=== PATIENT | female | born 1985 | race Caucasian/White ===

== ENCOUNTER 2019-05-20 13:48 | Observation (INO) | payer OTHER ==
[2019-05-20] MEDS ORDERED: SODIUM CHLORIDE 0.9% 1,000 ML IV ONE (16:05)
[2019-05-20] MEDS ORDERED: LORazepam 2 MG/ML INJ IV STA (16:05)
[2019-05-20 16:38] LABS: Basophils % (A) 2 %; Eosinophils % (A) 1 %; HCT 42.6 % (34.0-46.0); HGB 14.3 gm/dL (11.4-16.0); Lymphocytes # (A) 0.9 k/uL (1.0-4.8); Lymphocytes % (A) 34 %; MCH 37.5 pg (25.0-35.0); MCHC 33.6 g/dL (31.0-37.0); MCV 111.5 fL (80.0-100.0); Macrocytosis Marked; Mean Platelet Volume 6.6; Monocytes # (A) 0.1 k/uL (0-1.0); Monocytes % (A) 5 %; Neutrophils # (A) 1.4 k/uL (1.3-7.7); Neutrophils % (A) 55 %; Platelet Count 208 k/uL (150-450); RBC 3.82 m/uL (3.80-5.40); RDW 14.5 % (11.5-15.5); WBC 2.6 k/uL (3.8-10.6)
[2019-05-20 16:43] LABS: Appearance,Urine Cloudy (Clear); Bilirubin,Urine Negative (Negative); Blood,Urine Negative (Negative); Color,Urine Yellow; Glucose,Urine (UA) Negative (Negative); Ketones,Urine Negative (Negative); Leukocyte Esterase,Urine Negative (Negative); Mucus,Urine Rare /hpf; Nitrite,Urine Negative (Negative); Protein,Urine Negative (Negative); Specific Gravity,Urine 1.013 (1.001-1.035); Squamous Epithelial Cell,Urine 2 /hpf (0-4); Urobilinogen,Urine <2.0 mg/dL (<2.0); WBC,Urine 2 /hpf (0-5)
[2019-05-20 16:46] LABS: ALT 160 U/L (9-52); AST 437 U/L (14-36); African American GFR (CKD) >90 (>60 ml/min/1.73 sqM); Albumin 3.5 g/dL (3.5-5.0); Alcohol <10 mg/dL; Alkaline Phosphatase 220 U/L (38-126); Anion Gap 7 mmol/L; Blood Urea Nitrogen 14 mg/dL (7-17); Calcium 8.3 mg/dL (8.4-10.2); Carbon Dioxide 32 mmol/L (22-30); Chloride 98 mmol/L (98-107); Glucose 114 mg/dL (74-99); Non-African American GFR(CKD) >90 (>60 ml/min/1.73 sqM); Potassium 3.6 mmol/L (3.5-5.1); Sodium 137 mmol/L (137-145); Total Bilirubin 1.2 mg/dL (0.2-1.3); Total Protein 6.8 g/dL (6.3-8.2)
[2019-05-20 16:50] LABS: Amphetamine Screen,Urine Not Detected (NotDetected); Barbiturate Screen,Urine Not Detected (NotDetected); Benzodiazepines Screen,Urine Not Detected (NotDetected); Cocaine Screen,Urine Not Detected (NotDetected); Methadone Screen, Urine Not Detected (NotDetected); Opiate Screen,Urine Not Detected (NotDetected); Oxycodone Screen, Urine Not Detected (NotDetected); Phencyclidine Screen,Urine Not Detected (NotDetected); Tricyclic Antidepressant,Urine Not Detected (NotDetected); Urn Cannabinoid Scrn Detected (NotDetected)
[2019-05-20 17:02] LABS: Polychromasia Present
[2019-05-20] MEDS ORDERED: ONDANSETRON 4 MG/2 ML VIAL IVP PRN (18:25)
[2019-05-20] MEDS ORDERED: NALOXONE 0.4 MG/ML 1 ML VIAL IV PRN (18:25)
[2019-05-20] MEDS ORDERED: LORazepam 2 MG/ML INJ IV PRN (18:25)
[2019-05-20] MEDS ORDERED: THIAMINE 100 MG/ML 2 ML VIAL IM STA (18:25)
--- NOTE | 2019-05-20 18:25 | ED ---
General Adult HPI - General Chief complaint: Recheck/Abnormal Lab/Rx Stated complaint: Detox Time Seen by Provider: 05/20/19 14:10 Source: patient Mode of arrival: ambulatory Limitations: no limitations - History of Present Illness Initial comments: The patient is a 34-year-old female presents to the emergency room with reported alcohol withdrawal symptoms. Patient states that she normally drinks 4, 25 ounce beers per day of Nat[place] ice. Reports that she has been drinking straight for the past year. She has seen Dr. Flowers in office who is aware of her drinking and her willingness to cut down. He did instruct the patient to come into the emergency department for admission. The patient's last drink was last night. States that she's been very tremulous and nauseated today. Denies a history of DTs. No history of withdrawal seizures. Denies any vomiting. She denies any chest pain, shortness of breath or abdominal pain. No changes in her bowel or bladder habits. First day of her last menstrual period was one week ago. She admits to smoking cigarettes and marijuana. Denies use of any intravenous drugs. No hallucinations. There are no other alleviating, precipitating or modifying factors - Related Data Previous Rx's Medication Instructions Recorded Acamprosate Calcium [Campral] 666 mg PO TID #60 tablet. 05/25/19 Thiamine [Vitamin B-1] 100 mg PO BID-W/MEALS #100 tab 05/25/19 Allergies Allergy/AdvReac Type Severity Reaction Status Date / Time No Known Allergies Allergy Verified 05/20/19 17:14 Review of Systems ROS Statement: Those systems with pertinent positive or pertinent negative responses have been documented in the HPI. ROS Other: All systems not noted in ROS Statement are negative. Past Medical History Past Medical History: No Reported History History of Any Multi-Drug Resistant Organisms: None Reported Past Surgical History: No Surgical Hx Reported Additional Past Surgical History / Comment(s): facial Past Psychological History: No Psychological Hx Reported Smoking Status: Current every day smoker Past Alcohol Use History: Abuse, Daily Past Drug Use History: Marijuana - Past Family History Mother Family Medical History: Thyroid Disorder General Exam Limitations: no limitations General appearance: alert, in no apparent distress Head exam: Present: atraumatic, normocephalic, normal inspection Eye exam: Present: normal appearance, PERRL, EOMI. Absent: scleral icterus, conjunctival injection, periorbital swelling ENT exam: Present: normal exam, mucous membranes moist Neck exam: Present: normal inspection. Absent: tenderness, meningismus, lymphadenopathy Respiratory exam: Present: normal lung sounds bilaterally. Absent: respiratory distress, wheezes, rales, rhonchi, stridor Cardiovascular Exam: Present: regular rate, normal rhythm, normal heart sounds. Absent: systolic murmur, diastolic murmur, rubs, gallop, clicks GI/Abdominal exam: Present: soft, normal bowel sounds. Absent: distended, tenderness, guarding, rebound, rigid Extremities exam: Present: normal inspection, full ROM, normal capillary refill. Absent: tenderness, pedal edema, joint swelling, calf tenderness Back exam: Present: normal inspection Neurological exam: Present: alert, oriented X3, CN II-XII intact, other (mild tremors bilateral upper extremities) Psychiatric exam: Present: normal affect, normal mood Skin exam: Present: warm, dry, intact, normal color. Absent: rash Course Vital Signs 05/20/19 05/20/19 05/20/19 14:09 17:23 18:49 Temperature 97.3 F L Pulse Rate 81 87 83 Respiratory 18 18 18 Rate Blood Pressure 154/98 142/97 124/84 O2 Sat by Pulse 98 99 94 L Oximetry 05/20/19 20:07 Temperature Pulse Rate 86 Respiratory 18 Rate Blood Pressure 136/98 O2 Sat by Pulse 98 Oximetry Medical Decision Making - Medical Decision Making Upon arrival the patient was placed into room 11. She is hooked up to continuous pulse ox and cardiac monitoring. A thorough history and physical exam was performed. PIV was established. I did give the patient 1 mg of Ativan. I did place her on CIWA protocol. I recommended laboratory studies. Upon review of the results I did discuss them with the patient. White blood cell count is 2.6. MCV was 111. Glucose is 114. AST 437. ALT 160. Alk phos 220. Urine drug screen is positive for marijuana. Alcohol is negative. At this time I did call and discussed the case with Dr. Flowers who did accept admission for the patient. Patient was then transported to floor in stable condition - Lab Data Result diagrams: 05/24/19 16:25 05/24/19 16:25 Lab Results 05/20/19 05/20/19 05/20/19 Range/Units 16:15 16:15 16:25 WBC (3.8-10.6) k/uL RBC (3.80-5.40) m/uL Hgb (11.4-16.0) gm/dL Hct (34.0-46.0) % MCV (80.0-100.0) fL MCH (25.0-35.0) pg MCHC (31.0-37.0) g/dL RDW (11.5-15.5) % Plt Count (150-450) k/uL Neutrophils % % Lymphocytes % % Monocytes % % Eosinophils % % Basophils % % Neutrophils # (1.3-7.7) k/uL Lymphocytes # (1.0-4.8) k/uL Monocytes # (0-1.0) k/uL Eosinophils # (0-0.7) k/uL Basophils # (0-0.2) k/uL Manual Slide Review Polychromasia Macrocytosis Sodium 137 (137-145) mmol/L Potassium 3.6 (3.5-5.1) mmol/L Chloride 98 (98-107) mmol/L Carbon Dioxide 32 H (22-30) mmol/L Anion Gap 7 mmol/L BUN 14 (7-17) mg/dL Creatinine 0.68 (0.52-1.04) mg/dL Est GFR (CKD-EPI)AfAm >90 (>60 ml/min/1.73 sqM) Est GFR (CKD-EPI)NonAf >90 (>60 ml/min/1.73 sqM) Glucose 114 H (74-99) mg/dL Calcium 8.3 L (8.4-10.2) mg/dL Total Bilirubin 1.2 (0.2-1.3) mg/dL AST 437 H (14-36) U/L ALT 160 H (9-52) U/L Alkaline Phosphatase 220 H (38-126) U/L Total Protein 6.8 (6.3-8.2) g/dL Albumin 3.5 (3.5-5.0) g/dL Urine Color Yellow Urine Appearance Cloudy H (Clear) Urine pH 8.0 (5.0-8.0) Ur Specific [place] 1.013 (1.001-1.035) Urine Protein Negative (Negative) Urine Glucose (UA) Negative (Negative) Urine Ketones Negative (Negative) Urine Blood Negative (Negative) Urine Nitrite Negative (Negative) Urine Bilirubin Negative (Negative) Urine Urobilinogen <2.0 (<2.0) mg/dL Ur Leukocyte Esterase Negative (Negative) Urine WBC 2 (0-5) /hpf Ur Squamous Epith Cells 2 (0-4) /hpf Urine Mucus Rare H (None) /hpf Urine HCG, Qual Not Detected (Not Detectd) Urine Opiates Screen Not Detected (NotDetected) Ur Oxycodone Screen Not Detected (NotDetected) Urine Methadone Screen Not Detected (NotDetected) Ur Propoxyphene Screen Not Detected (NotDetected) Ur Barbiturates Screen Not Detected (NotDetected) U Tricyclic Antidepress Not Detected (NotDetected) Ur Phencyclidine Scrn Not Detected (NotDetected) Ur Amphetamines Screen Not Detected (NotDetected) U Methamphetamines Scrn Not Detected (NotDetected) U Benzodiazepines Scrn Not Detected (NotDetected) Urine Cocaine Screen Not Detected (NotDetected) U Marijuana (THC) Screen Detected H (NotDetected) Serum Alcohol <10 mg/dL 05/20/19 Range/Units 16:25 WBC 2.6 L (3.8-10.6) k/uL RBC 3.82 (3.80-5.40) m/uL Hgb 14.3 (11.4-16.0) gm/dL Hct 42.6 (34.0-46.0) % MCV 111.5 H (80.0-100.0) fL MCH 37.5 H (25.0-35.0) pg MCHC 33.6 (31.0-37.0) g/dL RDW 14.5 (11.5-15.5) % Plt Count 208 (150-450) k/uL Neutrophils % 55 % Lymphocytes % 34 % Monocytes % 5 % Eosinophils % 1 % Basophils % 2 % Neutrophils # 1.4 (1.3-7.7) k/uL Lymphocytes # 0.9 L (1.0-4.8) k/uL Monocytes # 0.1 (0-1.0) k/uL Eosinophils # 0.0 (0-0.7) k/uL Basophils # 0.0 (0-0.2) k/uL Manual Slide Review Performed Polychromasia Present Macrocytosis Marked A Sodium (137-145) mmol/L Potassium (3.5-5.1) mmol/L Chloride (98-107) mmol/L Carbon Dioxide (22-30) mmol/L Anion Gap mmol/L BUN (7-17) mg/dL Creatinine (0.52-1.04) mg/dL Est GFR (CKD-EPI)AfAm (>60 ml/min/1.73 sqM) Est GFR (CKD-EPI)NonAf (>60 ml/min/1.73 sqM) Glucose (74-99) mg/dL Calcium (8.4-10.2) mg/dL Total Bilirubin (0.2-1.3) mg/dL AST (14-36) U/L ALT (9-52) U/L Alkaline Phosphatase (38-126) U/L Total Protein (6.3-8.2) g/dL Albumin (3.5-5.0) g/dL Urine Color Urine Appearance (Clear) Urine pH (5.0-8.0) Ur Specific [place] (1.001-1.035) Urine Protein (Negative) Urine Glucose (UA) (Negative) Urine Ketones (Negative) Urine Blood (Negative) Urine Nitrite (Negative) Urine Bilirubin (Negative) Urine Urobilinogen (<2.0) mg/dL Ur Leukocyte Esterase (Negative) Urine WBC (0-5) /hpf Ur Squamous Epith Cells (0-4) /hpf Urine Mucus (None) /hpf Urine HCG, Qual (Not Detectd) Urine Opiates Screen (NotDetected) Ur Oxycodone Screen (NotDetected) Urine Methadone Screen (NotDetected) Ur Propoxyphene Screen (NotDetected) Ur Barbiturates Screen (NotDetected) U Tricyclic Antidepress (NotDetected) Ur Phencyclidine Scrn (NotDetected) Ur Amphetamines Screen (NotDetected) U Methamphetamines Scrn (NotDetected) U Benzodiazepines Scrn (NotDetected) Urine Cocaine Screen (NotDetected) U Marijuana (THC) Screen (NotDetected) Serum Alcohol mg/dL Disposition Clinical Impression: Alcohol withdrawal, Elevated liver enzymes Disposition[facility] Condition: Serious Is patient prescribed a controlled substance at d/c from ED?: No Decision to Admit Reason: Admit from EC Decision Date: 05/20/19 Decision Time: 18:25
[2019-05-20] MEDS: LACTATED RINGERS 1,000 ML IV SCH (20:04)
[2019-05-20 22:19] VITALS: BMI 17.1
[2019-05-20] MEDS: NICOTINE 14MG/24HR PATCH TRANSDERM SCH (22:45)
[2019-05-21] MEDS: LACTATED RINGERS 1,000 ML IV SCH ×2 (06:13→11:49)
[2019-05-21] MEDS: THIAMINE 100 MG TAB PO SCH ×2 (08:37→18:16)
[2019-05-21] MEDS: NICOTINE 14MG/24HR PATCH TRANSDERM SCH (08:37)
[2019-05-21] MEDS: LORazepam 2 MG/ML INJ IV PRN ×6 (11:46→22:44)
[2019-05-21] MEDS ORDERED: ACETAMINOPHEN TAB 325 MG TAB PO PRN (14:22)
--- NOTE | 2019-05-21 21:54 | PN ---
PROGRESS NOTE CHIEF COMPLAINT: Acute alcohol intoxication, chronic alcoholism and impending DTs. HISTORY OF PRESENT ILLNESS: This lady is doing fairly well. She is feeling a little bit tremulous, but she has not gone into DTs so far. She has no diplopia. PHYSICAL EXAMINATION: HEENT is normal. Chest is clear. Cardiac exam is normal. Abdomen is soft, nontender. Extremities are normal. IMPRESSION: 1. Acute alcohol intoxication. 2. Chronic alcoholism. 3. Impending delirium tremens. PLAN: Continue to follow. Her white count will be followed. It is slightly low at 2600. MMODL / IJN: [id number] /
--- NOTE | 2019-05-21 22:12 | HP ---
HISTORY AND PHYSICAL CHIEF COMPLAINT: Chronic alcoholism and impending DTs. HISTORY OF PRESENT ILLNESS: This is the first known admission for this 34-year-old white male who has been drinking heavily and had been in the office asking for help. She explained the safest and best way to detox is to put her in the hospital. Several days passed and then she came to emergency room. REVIEW OF SYSTEMS: She has had no diplopia, seizures, blackouts, neurologic problems, shortness of breath, chest pain, murmurs, rheumatic fever, palpitations, abdominal pain, nausea, vomiting, hematemesis, melena, hematochezia, jaundice, renal failure, hematuria dysuria, diabetes, etc. Past medical history, family history and personal and social histories reveal that she is not allergic to any medication. She has been on fenofibrate 160 mg for hypertriglyceridemia and Paxil 40 mg. She drinks 6 or more beers a day plus alcohol. She does smoke. PHYSICAL EXAM: Blood pressure is 146/100, pulse of 84, respirations of 35, and she is afebrile. In general, she appeared to be slender and somewhat tremulous. Skin was dry. Lymph nodes not enlarged. Head, ears, eyes, nose, mouth, and throat were normal. Neck veins not distended. Thyroid is not enlarged. CHEST: Clear. Cardiac exam is normal. The abdomen is flat, soft, and the liver is very slightly enlarged and not tender. Bowel sounds are present. Extremities normal. Neurologically she was intact but she is somewhat tremulous. IMPRESSION: 1. Impending delirium tremens. 2. Acute alcohol intoxication. 3. Chronic alcoholism. PLAN: 1. Bed rest. 2. [facility] protocol. MMODL / IJN: [id number] /
[2019-05-22] MEDS: LACTATED RINGERS 1,000 ML IV SCH ×3 (02:54→21:51)
[2019-05-22] MEDS: NICOTINE 14MG/24HR PATCH TRANSDERM SCH (09:30)
[2019-05-22] MEDS: THIAMINE 100 MG TAB PO SCH ×2 (09:30→16:49)
--- NOTE | 2019-05-22 11:07 | PN ---
PROGRESS NOTE CHIEF COMPLAINT: DTs. HISTORY OF PRESENT ILLNESS: This lady is gone on the floor with DTs and she required repeated doses of Ativan during the night. Physical exam she is quite drowsy now. She is arousable. She has no complaints. PHYSICAL EXAM: Color is good. Chest is clear. Cardiac exam is normal. Abdomen is soft, nontender. IMPRESSION: 1. Delirium tremens. 2. Chronic alcoholism. PLAN: Continue with CIWA scale. MMODL / IJN: [id number] /
[2019-05-22] MEDS: LORazepam 2 MG/ML INJ IV PRN ×2 (16:49→23:55)
[2019-05-23] MEDS: LACTATED RINGERS 1,000 ML IV SCH ×2 (08:35→16:06)
[2019-05-23] MEDS: THIAMINE 100 MG TAB PO SCH ×2 (08:35→16:14)
[2019-05-23] MEDS: NICOTINE 14MG/24HR PATCH TRANSDERM SCH (08:35)
[2019-05-23] MEDS: LORazepam 2 MG/ML INJ IV PRN ×4 (13:31→23:55)
[2019-05-23] MEDS ORDERED: MAGNESIUM HYDROXIDE 2,400 MG/10 ML CUP PO PRN (17:44)
[2019-05-24] MEDS: LACTATED RINGERS 1,000 ML IV SCH ×3 (03:51→23:07)
[2019-05-24] MEDS: NICOTINE 14MG/24HR PATCH TRANSDERM SCH (07:44)
[2019-05-24] MEDS: THIAMINE 100 MG TAB PO SCH ×2 (07:45→17:44)
[2019-05-24] MEDS: LORazepam 2 MG/ML INJ IV PRN (13:56)
[2019-05-24 16:38] LABS: Basophils % (A) 1 %; Eosinophils # (A) 0.1 k/uL (0-0.7); Eosinophils % (A) 2 %; HCT 34.4 % (34.0-46.0); Lymphocytes % (A) 36 %; MCH 36.9 pg (25.0-35.0); MCHC 32.2 g/dL (31.0-37.0); MCV 114.8 fL (80.0-100.0); Macrocytosis Marked; Mean Platelet Volume 7.1; Monocytes # (A) 0.2 k/uL (0-1.0); Monocytes % (A) 7 %; Neutrophils # (A) 1.5 k/uL (1.3-7.7); Neutrophils % (A) 52 %; Platelet Count 195 k/uL (150-450); RDW 14.4 % (11.5-15.5); WBC 2.9 k/uL (3.8-10.6)
[2019-05-24 16:46] LABS: HGB 11.1 gm/dL (11.4-16.0)
[2019-05-24 16:48] LABS: ALT 80 U/L (9-52); AST 96 U/L (14-36); African American GFR (CKD) >90 (>60 ml/min/1.73 sqM); Alkaline Phosphatase 119 U/L (38-126); Anion Gap 3 mmol/L; Blood Urea Nitrogen 14 mg/dL (7-17); Calcium 9.6 mg/dL (8.4-10.2); Carbon Dioxide 32 mmol/L (22-30); Chloride 102 mmol/L (98-107); Glucose 96 mg/dL (74-99); Non-African American GFR(CKD) 89 (>60 ml/min/1.73 sqM); Potassium 4.5 mmol/L (3.5-5.1); Sodium 137 mmol/L (137-145); Total Bilirubin 0.8 mg/dL (0.2-1.3); Total Protein 5.8 g/dL (6.3-8.2)
--- NOTE | 2019-05-24 20:46 | PN ---
PROGRESS NOTE DATE OF SERVICE: 05/23/2019 CHIEF COMPLAINT: Delirium tremens. HISTORY OF PRESENT ILLNESS: This lady is slowly improving. She is still a bit shaky and a little bit lethargic. Vital signs are normal. She has no tachycardia. PHYSICAL EXAMINATION: Chest is clear. Cardiac exam is normal. Abdomen is soft, nontender. IMPRESSION: Alcoholism, delirium tremens. PLAN: Continue with [facility] protocol until she is able to be discharged, which may be another day or 2. MMODL / IJN: [id number] /
[2019-05-24 21:50] VITALS: TEMP 98
[2019-05-25] MEDS: LORazepam 2 MG/ML INJ IV PRN (00:31)
[2019-05-25 04:57] VITALS: BP 114/74; PULSE 70; RESP 20
[2019-05-25] MEDS: THIAMINE 100 MG TAB PO SCH (09:49)
[2019-05-25] MEDS: LACTATED RINGERS 1,000 ML IV SCH (09:50)
[2019-05-25] MEDS ORDERED: ACAMPROSATE CALCIUM 333 MG TABLET.DR PO SCH (16:00)
--- NOTE | 2019-05-25 18:12 | DS ---
DISCHARGE SUMMARY CHIEF COMPLAINT: Chronic alcoholism and DTs. HISTORY OF PRESENT ILLNESS AND PHYSICAL EXAMINATION: Details of this young lady's history and physical can be found in the initial workup. LABORATORY STUDIES: While she was in the hospital she had laboratory studies, details of which can be found in the laboratory section of her chart. COURSE IN THE HOSPITAL: After admission she was placed on bedrest and started on intravenous fluids and placed on CIWA protocol. She did go into DTs where she became very agitated, tremulous and slightly confused. This passed and she was improved to the point that it was felt she could go home on May 25. She will go home on her usual activity, diet and medication and she will be prescribed acamprosate 666 mg 3 times a day, and she will be seen in the office in a day or two. She is also told to start thiamine twice a day. FINAL DIAGNOSES: 1. Delirium tremens. 2. Chronic alcoholism. OPERATIONS: None. CONSULTATIONS: None. She is improved. MMRENETTA / IJN: [id number] /
== END 2019-05-25 13:20 | disposition home or self-care (01) ==
LOC: EC 13:48 → 3NMEDONC 18:25 → INTOOBSV 18:25 → UNDOADMIN 18:25 → 3NMEDONC 18:48 → UNDODISIN 05-25 13:20
PROVIDERS: ADMIT Family Medicine; ATTEND Family Medicine
DX: F10.231 Alcohol dependence with withdrawal delirium (principal); F17.210 Nicotine dependence, cigarettes, uncomplicated; E78.1 Pure hyperglyceridemia; Z79.899 Other long term (current) drug therapy; Z83.49 Family history of other endocrine, nutritional and metabolic diseases
CPT/HCPCS: 96376 ×5; 96361; 96372; 96374; 99285; 36415; 80053 ×2; 85025 ×2; 81001; 81025; 80306; G0378 ×6; G0480; S4990 ×5; J2060 ×6; J3411; 80320

== ENCOUNTER 2019-07-04 17:52 | Emergency (ER) | payer OTHER ==
[2019-07-04 17:56] VITALS: PULSE 68
--- NOTE | 2019-07-04 19:03 | XR ---
EXAMINATION TYPE: XR hand complete RT DATE OF EXAM: 07/04/2019 COMPARISON: NONE HISTORY: Laceration on the thumb TECHNIQUE: 3 views FINDINGS: I see no fracture nor dislocation. Joint spaces are fairly normal. There is no focal bone d estruction. IMPRESSION: Negative right hand exam.
[2019-07-04] MEDS ORDERED: AMOXIC-POT CLAV 875MG STARTER 2 EACH TABLET PO STA (19:34)
--- NOTE | 2019-07-04 19:35 | ED ---
General Adult HPI - General Chief complaint: Wound/Laceration Stated complaint: Thumb Infection Time Seen by Provider: 07/04/19 17:59 Source: patient Mode of arrival: ambulatory Limitations: no limitations - History of Present Illness Initial comments: Patient is a 34-year-old female presenting to the emergency room with a chief complaint of right thumb swelling. Patient reports she lacerated her right thumb about 2 months ago and it is occasionally been opening the laceration site. Patient reports 2 days ago she was prescribed Keflex. Patient reports 2 doses of the medication and began vomiting. Patient reports gradually she developed swelling on the right finger. Patient does report tenderness and erythema that appears to be spreading proximally. Patient denies any drainage from the initial site of injury. Patient reports her tetanus status is up-to-date. Patient denies any fevers or chills. Patient reports full range of motion although she feels pressure with full flexion. - Related Data Previous Rx's Medication Instructions Recorded Acamprosate Calcium [Campral] 666 mg PO TID #60 tablet. 05/25/19 Thiamine [Vitamin B-1] 100 mg PO BID-W/MEALS #100 tab 05/25/19 Amoxicillin/Potassium Clav 1 tab PO Q12HR #20 tab 07/04/19 [Augmentin 875-125 Tablet] Amoxicillin/Potassium Clav 1 tab PO Q12HR #20 tab 07/04/19 [Augmentin 875-125 Tablet] Allergies Allergy/AdvReac Type Severity Reaction Status Date / Time No Known Allergies Allergy Verified 07/04/19 17:53 Review of Systems ROS Statement: Those systems with pertinent positive or pertinent negative responses have been documented in the HPI. ROS Other: All systems not noted in ROS Statement are negative. Past Medical History Past Medical History: No Reported History History of Any Multi-Drug Resistant Organisms: None Reported Past Surgical History: No Surgical Hx Reported Additional Past Surgical History / Comment(s): facial Past Anesthesia/Blood Transfusion Reactions: No Reported Reaction Past Psychological History: No Psychological Hx Reported Smoking Status: Current every day smoker Past Alcohol Use History: Abuse, Daily Past Drug Use History: Marijuana - Past Family History Mother Family Medical History: Thyroid Disorder General Exam Limitations: no limitations General appearance: alert, in no apparent distress Head exam: Present: atraumatic, normocephalic, normal inspection Eye exam: Present: normal appearance Pupils: Present: normal accommodation ENT exam: Present: normal exam, mucous membranes moist, normal external ear exam Neck exam: Present: normal inspection, full ROM Respiratory exam: Present: normal lung sounds bilaterally Cardiovascular Exam: Present: regular rate, normal rhythm, normal heart sounds Extremities exam: Present: full ROM, tenderness (Tenderness at the right thumb.), normal capillary refill, other (+2 lateral and radial pulses bilaterally.). Absent: normal inspection (Swelling and erythema at the right thumb) Back exam: Present: normal inspection, full ROM Neurological exam: Present: alert, oriented X3 Psychiatric exam: Present: normal affect, normal mood Skin exam: Present: warm, intact, normal color Course Vital Signs 07/04/19 07/04/19 17:53 19:49 Temperature 98.0 F 98.2 F Pulse Rate 68 68 Respiratory 16 18 Rate Blood Pressure 130/60 128/72 O2 Sat by Pulse 98 100 Oximetry Medical Decision Making - Medical Decision Making Patient is a 34-year-old female presenting to the emergency department with a chief complaint of right thumb swelling. Based physical examination there is swelling and erythema on the right finger that appears to be infected. Patient was given Keflex. She appears to be ALLERGIC as she continues to vomit from medication. X-ray is unremarkable aside from the swelling. Patient will be discharged with Augmentin. Strict return parameters were thoroughly discussed with patient was understanding and agreeable. Case discussed with physician. Disposition Clinical Impression: Swelling of finger Disposition: HOME SELF-CARE Condition: Stable Additional Instructions: Please take prescribed medication as directed. Patient to emergency department if symptoms worsen. Please follow up primary care. Prescriptions: Amoxicillin/Potassium Clav [Augmentin 875-125 Tablet] 1 tab PO Q12HR #20 tab Amoxicillin/Potassium Clav [Augmentin 875-125 Tablet] 1 tab PO Q12HR #20 tab Is patient prescribed a controlled substance at d/c from ED?: No Referrals: Saul Flowers MD [Primary Care Provider] - 1-2 days Time of Disposition: 19:35
[2019-07-04 19:51] VITALS: BP 128/72; RESP 18; TEMP 98.2
== END 2019-07-04 19:50 | disposition home or self-care (01) ==
LOC: EC 17:52
DX: M79.89 Other specified soft tissue disorders (principal); L53.9 Erythematous condition, unspecified; F17.200 Nicotine dependence, unspecified, uncomplicated
CPT/HCPCS: 99284

== ENCOUNTER 2020-10-06 03:46 | Emergency (ER) | payer OTHER ==
[2020-10-06] MEDS ORDERED: DIPH,PERTUS(ACELL)TETVAC-LF 0.5 ML VIAL IM ONE (03:50)
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
[2020-10-06 03:55] VITALS: TEMP 98
[2020-10-06] MEDS ORDERED: LIDOCAINE 1% INJ 10MG/ML (20 ML MDV) SQ ONE (03:59)
--- NOTE | 2020-10-06 04:21 | CT ---
EXAM: CT Head Without Intravenous Contrast CLINICAL HISTORY: ITS.REASON CT Reason: trauma TECHNIQUE: Axial computed tomography images of the head/brain without intravenous contrast. CTDI is 49.27 mGy and DLP is 1099.4 mGy-cm. This CT exam was performed using one or more of the following dose reduction techniques: automated exposure control, adjustment of the mA and/or kV according to patient size, and/or use of iterative reconstruction technique. COMPARISON: July 25, 2015 FINDINGS: Brain: Unremarkable. No hemorrhage. No significant white matter disease. No edema. Ventricles: Unremarkable. No ventriculomegaly. Bones/joints: See below. Soft tissues: There is a posterior scalp laceration. No skull fracture is seen. Sinuses: Unremarkable as visualized. No acute sinusitis. Mastoid air cells: Unremarkable as visualized. No mastoid effusion. IMPRESSION: There is a posterior scalp laceration. No skull fracture is seen. The brain appears unremarkable. No intracranial hemorrhage is identified.
[2020-10-06 05:29] VITALS: BP 128/70; PULSE 78; RESP 18
== END 2020-10-06 05:38 | disposition home or self-care (01) ==
LOC: EC 03:46
DX: S01.01XA Laceration without foreign body of scalp, initial encounter (principal); F17.200 Nicotine dependence, unspecified, uncomplicated; Y04.2XXA Assault by strike against or bumped into by another person, initial encounter
CPT/HCPCS: 70450; 99284; 12002; J2001

== ENCOUNTER 2022-12-25 23:13 | Inpatient (IN) | payer OTHER ==
[2022-12-25] MEDS ORDERED: TRANEXAMIC ACID IN NACL,ISO-OS 1,000 MG in EMPTY BAG 1 BAG IV PRN (23:54)
[2022-12-25] MEDS ORDERED: TERBUTALINE 1 MG/ML VIAL SQ PRN (23:54)
[2022-12-25] MEDS ORDERED: OXYTOCIN 10 UNIT/ML 1 ML VIAL IM PRN (23:54)
[2022-12-25] MEDS ORDERED: METHYLERGONOVINE 0.2 MG/ML 1 ML AMP IM PRN (23:54)
[2022-12-25] MEDS ORDERED: LIDOCAINE 0.5% (PF) 5 MG/ML (50 ML SDV) SQ PRN (23:54)
[2022-12-25] MEDS ORDERED: miSOPROStoL 200 MCG TAB PO PRN (23:54)
[2022-12-25] MEDS ORDERED: CARBOPROST TROMETHAMINE 250 MCG/ML 1 ML AMP IM PRN (23:54)
[2022-12-26] MEDS ORDERED: AMPICILLIN 2,000 MG in SODIUM CHLORIDE 0.9% 100 ML IVPB ONE ×2
[2022-12-26 00:29] LABS: Cocaine Screen,Urine Not Detected (NotDetected); Phencyclidine Screen,Urine Not Detected (NotDetected)
[2022-12-26 00:30] LABS: Amphetamine Screen,Urine Detected (NotDetected); Barbiturate Screen,Urine Not Detected (NotDetected); Benzodiazepines Screen,Urine Not Detected (NotDetected); Methadone Screen, Urine Not Detected (NotDetected); Opiate Screen,Urine Not Detected (NotDetected); Oxycodone Screen, Urine Not Detected (NotDetected); Tricyclic Antidepressant,Urine Not Detected (NotDetected); Urn Cannabinoid Scrn Not Detected (NotDetected)
[2022-12-26 00:47] VITALS: RESP 16
[2022-12-26] MEDS: LACTATED RINGERS 1,000 ML IV SCH ×3 (00:47→19:32)
[2022-12-26 01:22] LABS: Basophils % (A) 0 %; Eosinophils % (A) 1 %; HCT 39.4 % (34.0-46.0); HGB 13.7 gm/dL (11.4-16.0); Lymphocytes # (A) 1.6 k/uL (1.0-4.8); Lymphocytes % (A) 26 %; MCH 33.3 pg (25.0-35.0); MCHC 34.7 g/dL (31.0-37.0); MCV 95.9 fL (80.0-100.0); Monocytes # (A) 0.3 k/uL (0-1.0); Monocytes % (A) 5 %; Neutrophils # (A) 4.2 k/uL (1.3-7.7); Neutrophils % (A) 67 %; Platelet Count 209 k/uL (150-450); RBC 4.11 m/uL (3.80-5.40); RDW 13.5 % (11.5-15.5); WBC 6.3 k/uL (3.8-10.6)
[2022-12-26] MEDS: BUTORPHANOL 2 MG/ML 1 ML VIAL IV PRN ×2 (01:51→03:53)
[2022-12-26] MEDS: AMPICILLIN 1,000 MG in SODIUM CHLORIDE 0.9% 50 ML IVPB SCH ×4 (03:52→20:22)
[2022-12-26] MEDS ORDERED: OXYTOCIN 30 UNITS/500 ML NS 30 UNIT in SALINE 1 500ML.BAG IV SCH ×2 (04:45→11:45)
[2022-12-26] MEDS ORDERED: ROPIVACAINE 5 MG/ML 20 ML AMPULE ONE (06:24)
[2022-12-26] MEDS ORDERED: fentaNYL (PF) 50 MCG/ML 5 ML AMP ONE (06:24)
[2022-12-26] MEDS ORDERED: SODIUM CHLORIDE 0.9% 100 ML BAG ONE (06:24)
[2022-12-26] MEDS ORDERED: ROPIVACAINE 225 MG, fentaNYL (PF). 450 MCG in SODIUM CHLORIDE 0.9% 171 ML EPIDURAL ONE (06:43)
[2022-12-26] MEDS ORDERED: diphenhydrAMINE 25 MG CAP PO PRN (11:41)
[2022-12-26] MEDS ORDERED: LANOLIN CREAM 5 GM TUBE TOPICAL PRN (11:41)
[2022-12-26] MEDS ORDERED: ZOLPIDEM 5 MG TAB PO PRN (11:41)
[2022-12-26] MEDS ORDERED: ACETAMINOPHEN TAB 325 MG TAB PO PRN (11:41)
[2022-12-26] MEDS ORDERED: diphenhydrAMINE 50 MG/ML 1 ML VIAL IVP PRN ×2 (11:41)
[2022-12-26] MEDS ORDERED: SIMETHICONE 80 MG CHEWABLE PO PRN (11:41)
[2022-12-26] MEDS ORDERED: diphenhydrAMINE 50 MG CAP PO PRN (11:41)
[2022-12-26] MEDS ORDERED: BENZOCAINE/MENTHOL SPRAY 1 GM/SPRAY AEROSOL TOPICAL PRN (11:41)
[2022-12-26] MEDS ORDERED: HYDROCORTISONE 2.5% RECTAL CREAM 30 GM TUBE RECTAL PRN (11:41)
--- NOTE | 2022-12-26 11:45 | P.PROBDLV ---
Vaginal Delivery Note - . Vaginal Delivery Note: 37-year-old at 39-6/7 weeks that presents to labor and delivery with complaints of spontaneous rupture of membranes. Patient states her water broke around 10 PM. It was clear in nature. Patient denied contractions at that time. Patient has very limited care. Patient was seeing [facility] for the beginning of and missed multiple appointments after 20 weeks. Patient denies concerns with her prior or delivery. Patient was admit sydnie to labor and delivery spontaneous rupture of membranes was verified by anesthesia. A known GBS status. IV antibiotics were begun. Patient was watched over night and after contractions spaced. Pitocin augmentation of labor was begun. Patient was uncomfortable and requested epidural placement, anesthesia was notified. Patient had good relief of her contractions and was noted to be completely dilated. Patient began pushing and had a normal spent he's vaginal delivery of a viable male infant at 1121, weight of 7 lbs. 11 oz., Apgars of 8 and 9 at one and 5 minutes respectively. The umbilical cord was doubly clamped and cut and the placenta was delivered spontaneously intact with three-vessel cord being noted. A first-degree perineal laceration was appreciated. This was repaired in a running fashion with 3-0 Rapide. Hemostasis was noted. Bladder was drained for approximately 100 mL of concentrated urine. Uterus was noted to be firm and below the umbilicus. All counts are correct 2 at the end of the delivery. Patient and tolerated delivery well and are resting comfortably.
--- NOTE | 2022-12-26 11:46 | P.HPOB ---
History of Present Illness H&P Date: 12/26/22 Chief Complaint: IUP @ 39 5/7 week, SROM This is a 37 yo at 39 5/7 weeks that presented last evening with complaints of SROM around 10 pm. She did receive care in the first part of the , then after 20 weeks stopped going to her appointments. Patient does note good movement, denies vaginal bleeding. labs are unavailable at this time. Review of Systems Constitutional: Denies chills, Denies fatigue, Denies fever Ears, nose, mouth and throat: Denies headache Cardiovascular: Denies leg edema Respiratory: Denies dyspnea Gastrointestinal: Denies constipation, Denies diarrhea, Denies nausea, Denies vomiting Genitourinary: Reports Past Medical History Past Medical History: No Reported History Additional Past Medical History / Comment(s): heart murmur History of Any Multi-Drug Resistant Organisms: None Reported Past Surgical History: No Surgical Hx Reported Additional Past Surgical History / Comment(s): facial Past Anesthesia/Blood Transfusion Reactions: No Reported Reaction Past Psychological History: No Psychological Hx Reported Smoking Status: Current every day smoker Past Alcohol Use History: Abuse, Daily Past Drug Use History: Marijuana - Past Family History Mother Family Medical History: Thyroid Disorder Medications and Allergies Allergies Allergy/AdvReac Type Severity Reaction Status Date / Time No Known Allergies Allergy Verified 07/04/19 17:53 Exam Osteopathic Statement: *. No significant issues noted on an osteopathic structural exam other than those noted in the History and Physical/Consult. Vital Signs Pulse Resp BP Pulse Ox 12/25/22 23:18 97 16 130/80 98 Intake and Output 12/25/22 12/26/22 12/26/22 22:59 06:59 14:59 Other: # Voids 2 Weight 68.039 kg Results Result Diagrams: 12/26/22 00:30 12/26/22 00:30 Abnormal Lab Results - Last 24 Hours (Table) 12/25/22 Range/Units 23:20 Ur Amphetamines Screen Detected H (NotDetected) U Methamphetamines Scrn Detected H (NotDetected) Assessment and Plan (1) Term Current Visit: Yes Status: Acute Code(s): Z34.90 - ENCNTR FOR SUPRVSN OF NORMAL , UNSP, UNSP TRIMESTER SNOMED Code(s): 87662224 (2) SROM (spontaneous rupture of membranes) Current Visit: Yes Status: Acute Code(s): XQN9840 - SNOMED Code(s): 1697 63603 Plan: 37 yo at 39 5/7 weeks that presented with c/o SROM. she is admitted and IV antibiotics were begun for GBS unknown with minimal care. Augmentation of labor is begun with pitocin.
[2022-12-26] MEDS: IBUPROFEN 600 MG TAB PO SCH ×2 (15:38→19:32)
[2022-12-26] MEDS: SENNOSIDES-DOCUSATE SODIUM 1 EACH TAB PO SCH (19:42)
[2022-12-26 21:14] LABS: Hepatitis B Surface Antigen Nonreactive (Nonreactive)
[2022-12-27] MEDS: LACTATED RINGERS 1,000 ML IV SCH ×2 (01:17→06:42)
[2022-12-27] MEDS: IBUPROFEN 600 MG TAB PO SCH ×5 (01:17→22:09)
[2022-12-27 03:20] LABS: HIV 2 AB Non-Reactive (Non-Reactive); HIV AB P24 Non-Reactive (Non-Reactive); HIV P24 AG Non-Reactive (Non-Reactive)
[2022-12-27 05:51] LABS: Basophils % (A) 0 %; Eosinophils % (A) 0 %; HCT 35.8 % (34.0-46.0); HGB 12.1 gm/dL (11.4-16.0); Lymphocytes # (A) 1.8 k/uL (1.0-4.8); Lymphocytes % (A) 21 %; MCH 33.4 pg (25.0-35.0); MCHC 33.9 g/dL (31.0-37.0); MCV 98.6 fL (80.0-100.0); Monocytes # (A) 0.4 k/uL (0-1.0); Monocytes % (A) 4 %; Neutrophils # (A) 6.1 k/uL (1.3-7.7); Neutrophils % (A) 73 %; Platelet Count 179 k/uL (150-450); RBC 3.64 m/uL (3.80-5.40); RDW 13.3 % (11.5-15.5); WBC 8.3 k/uL (3.8-10.6)
[2022-12-27] MEDS: SENNOSIDES-DOCUSATE SODIUM 1 EACH TAB PO SCH ×2 (07:34→19:53)
--- NOTE | 2022-12-27 09:10 | P.PNOBGVD ---
Subjective - Subjective Principal diagnosis: day #1 status post normal spontaneous vaginal delivery Interval history: Patient is doing well . She is ambulating and voiding without difficulty. She is tolerating a regular diet without nausea or vomiting. She states her pain is well-controlled. Patient reports: Reports appetite normal, Reports voiding normally, Reports pain well controlled, Reports ambulating normally : doing well (In special care nursery) Objective - Latest Vital Signs Latest vital signs: Vital Signs Temp Pulse Resp BP Pulse Ox 12/27/22 07:42 98.0 F 80 16 134/80 98 12/27/22 00:00 98.1 F 78 16 114/67 97 12/26/22 20:00 97.8 F 69 16 126/73 100 12/26/22 15:22 98.2 F 73 16 133/83 12/26/22 13:50 78 16 120/58 12/26/22 13:15 70 16 114/67 12/26/22 12:55 70 16 114/67 12/26/22 12:39 68 16 126/63 12/26/22 12:25 78 16 120/64 12/26/22 12:09 80 16 109/65 12/26/22 12:00 79 16 111/67 12/26/22 11:55 79 16 111/67 Intake and Output 12/26/22 12/27/22 12/27/22 22:59 06:59 14:59 Other: # Voids 1 - Exam Extremities: Present: normal, edema Abdomen: Present: normal appearance, soft Uterus: Present: normal, firm - Labs Labs: Abnormal Lab Results - Last 24 Hours (Table) 12/26/22 12/27/22 Range/Units 00:30 05:29 RBC 3.64 L (3.80-5.40) m/uL Rubella IgG Antibody 145.00 H (0.00-10.00) IU/mL Assessment and Plan (1) Term Current Visit: Yes Status: Acute Code(s): Z34.90 - ENCNTR FOR SUPRVSN OF NORMAL , UNSP, UNSP TRIMESTER SNOMED Code(s): 04129392 (2) SROM (spontaneous rupture of membranes) Current Visit: Yes Status: Acute Code(s): EYR7298 - SNOMED Code(s): 180170149 (3) Status post normal vaginal delivery Current Visit: Yes Status: Acute Code(s): ZDL2351 - SNOMED Code(s): 400119360 Plan: 37-year-old G2 now P2 status post normal spontaneous vaginal delivery. Patient is doing well . She does desire to stay an additional day given infant is in the nursery. Plan discharge home tomorrow
--- NOTE | 2022-12-28 07:31 | P.PNOBGVD ---
Subjective - Subjective Principal diagnosis: s/p vaginal delivery Interval history: The patient is doing well this morning and had no acute events overnight. She has no complaints this morning. She reports minimal lochia, passing flatus, voiding without difficulty, ambulating, and eating/drinking without nausea or vomiting. She is breast-pumping without difficulty. Infant is in the nursery being scored for MAGGIE. She denies chest pain, shortness of breathing, fevers, or chills overnight. She denies pain or swelling in the legs. Patient reports: Reports appetite normal, Reports voiding normally, Reports pain well controlled, Reports ambulating normally [place]: doing well Objective - Latest Vital Signs Latest vital signs: Vital Signs Temp Pulse Resp BP Pulse Ox 12/28/22 00:00 98.8 F 67 16 120/70 99 12/27/22 20:00 98.3 F 72 16 117/60 98 12/27/22 15:36 97.6 F 88 16 124/76 12/27/22 07:42 98.0 F 80 16 134/80 98 - Exam Extremities: Present: normal Abdomen: Present: normal appearance, soft Uterus: Present: normal, firm Assessment and Plan Assessment: 37 year old now day #2 s/p normal vaginal delivery Plan: Plan for discharge home today.
--- NOTE | 2022-12-28 07:35 | P.DS ---
Providers Date of admission: 12/25/22 23:50 Expected date of discharge: 12/28/22 Attending physician: Luana Murray Primary care physician: Stated None Hospital Course: 37 year old now day #2 who desires discharge home today. She presented in labor and had an uncomplicated vaginal delivery. Her is in the nursery being scored for MAGGIE. She is counseled on 6 weeks of pelvic rest. She is encouraged to call the office for any heavy bleeding, breast complaints, foul-smelling vaginal discharge or any other concerns. She will follow up in [address] Murray for appointment. Assessment: 37 yo now PPD#2 s/p NVD Patient Condition at Discharge: Good Plan - Discharge Summary Discharge Rx Participant: No Follow up Appointment(s)/Referral(s): Luana Murray DO [Doctor of Osteopathic Medicine] - 4 Weeks Patient Instructions/Handouts: Depression (DC), Perineal Care (DC), Bleeding (DC), Vaginal Delivery (DC), How to Increase Your Milk Supply (DC), How to Tell if Your Baby is Getting Enough Breast Milk (DC) Activity/Diet/Wound Care/Special Instructions: Pelvic rest for 6 weeks Discharge Disposition: HOME SELF-CARE
[2022-12-28] MEDS: IBUPROFEN 600 MG TAB PO SCH (09:51)
[2022-12-28] MEDS: SENNOSIDES-DOCUSATE SODIUM 1 EACH TAB PO SCH (09:56)
[2022-12-28 15:52] VITALS: BP 118/77; PULSE 72; TEMP 98.4
[2022-12-28] MEDS: LACTATED RINGERS 1,000 ML IV SCH (17:24)
--- NOTE | 2023-01-01 12:06 | CDI ---
Documentation Clarification Form Date: 01/01/2023 From: Antonella Gottlieb Admit Date: 12/25/2022 11:50:00 PM Patient Name: Josie Hackett Visit Number: [id number] Discharge Date: 12/28/2022 6:30:00 PM ATTENTION: The Clinical Documentation Specialists (CDI) and [facility] Coding Staff appreciate your assistance in clarifying documentation. Please respond to the clarification below the line at the bottom and electronically sign. The CDI & [facility] Coding staff will review the response and follow-up if needed. Please note: Queries are made part of the Legal Health Record. If you have any questions, please contact the author of this message via ITS. Dr. Luana Murray, Substance abuse/Drug use is documented 12/26 Surgical Path Report, 12/26 History and Physical, and 12/26 Nursing Admit Report Pg. 11/02 Additional clarification regarding the type of substance abuse/drug use is requested. History/risk factors: , minimal Pre-[place] care, Nicotine dependence. Clinical Indicators:12/25 Laboratory Toxicology Treatment: None Please clarify the type and substance on the four below, if known: Abused Substance: 1. [ ] Amphetamine Type of Substance Disorder: [ ] Abuse [ ] Dependence [ ] Use [ ] Unknown [ ] Other, please specify [ ] Unable to determine 2. [ ] Cannabis Type of Substance Disorder: [ ] Abuse [ ] Dependence [ ] Use [ ] Unknown [ ] Other, please specify [ ] Unable to determine 3. [ ] Stimulant Type of Substance Disorder: [ ] Abuse [ ] Dependence [ ] Use [ ] Unknown [ ] Other, please specify [ ] Unable to determine 4. [ ] Alcohol Type of Substance Disorder: [ ] Abuse [ ] Dependence [ ] Use [ ] Unknown [ ] Other, please specify [ ] Unable to determine [ ] Other, please specify [ ] Unable to determine MTDD
--- NOTE | 2023-01-01 12:08 | CDI ---
Documentation Clarification Form Date: 01/01/2023 From: Antonella Gottlieb Admit Date: 12/25/2022 11:50:00 PM Patient Name: Josie Hackett Visit Number: [id number] Discharge Date: 12/28/2022 6:30:00 PM ATTENTION: The Clinical Documentation Specialists (CDI) and [facility] Coding Staff appreciate your assistance in clarifying documentation. Please respond to the clarification below the line at the bottom and electronically sign. The CDI & [facility] Coding staff will review the response and follow-up if needed. Please note: Queries are made part of the Legal Health Record. If you have any questions, please contact the author of this message via ITS. Dr. Luana Murray, Substance abuse/Drug use is documented 12/26 Surgical Path Report, 12/26 History and Physical, and 12/26 Nursing Admit Report Pg. 11/02 Additional clarification regarding the type of substance abuse/drug use is requested. History/risk factors: , minimal Pre-[place] care, Nicotine dependence. Clinical Indicators:12/25 Laboratory Toxicology Treatment: None Please clarify the type and substance, if known: Abused Substance: [ ] Alcohol Type of Substance Disorder: [ ] Abuse [ ] Dependence [ ] Use [ ] Unknown [ ] Other, please specify [ ] Unable to determine MTDD
== END 2022-12-28 18:30 | disposition home or self-care (01) | DRG 560 ==
LOC: FBPOP 23:13 → 4FBP 23:50
PROVIDERS: ADMIT Obstetrics & Gynecology Obstetrics; ATTEND Obstetrics & Gynecology Obstetrics
PROC: 0HQ9XZZ Repair Perineum Skin, External Approach (ICD-10-PCS; principal; 2022-12-26)
PROC: 10E0XZZ Delivery of Products of Conception, External Approach (ICD-10-PCS; principal; 2022-12-26)
DX: O99.334 Smoking (tobacco) complicating childbirth (principal); Z37.0 Single live birth; F10.11 Alcohol abuse, in remission; O70.0 First degree perineal laceration during delivery; F17.210 Nicotine dependence, cigarettes, uncomplicated; Z3A.39 39 weeks gestation of pregnancy; Z28.310 Unvaccinated for COVID-19
CPT/HCPCS: 80306; 82947; 84112; 85025; 86762; 86780; 86850; 86900; 86901; 87340; 87390; 88307; 96360; 99213

== ENCOUNTER 2024-04-15 12:22 | Emergency (ER) | payer OTHER ==
[2024-04-15] MEDS ORDERED: ONDANSETRON 4 MG/2 ML VIAL ONE (13:17)
[2024-04-15] MEDS ORDERED: diphenhydrAMINE 50 MG/ML 1 ML VIAL ONE (13:18)
[2024-04-15] MEDS ORDERED: methylPREDNISolone SOD SUCCI 125 MG/2 ML VIAL ONE (13:18)
[2024-04-15] MEDS ORDERED: SODIUM CHLORIDE 0.9% 1,000 ML BAG ONE (13:50)
[2024-04-15] MEDS ORDERED: ACETAMINOPHEN TAB 325 MG TAB ONE (14:19)
[2024-04-16] MEDS ORDERED: TOPICAL SKIN ADHESIVE 1 EACH AMP TOPICAL ONE (12:51)
== END 2024-04-15 15:26 | disposition home or self-care (01) ==
LOC: EC 12:22
CPT/HCPCS: 96361; 96374; 96375; 99284

== ENCOUNTER 2024-05-07 13:54 | Emergency (ER) | payer OTHER ==
[2024-05-07 14:27] VITALS: TEMP 98
[2024-05-07 15:03] LABS: INR 1.1 (<1.2); Partial Thromboplastin Time 25.3 sec (22.0-30.0); Prothrombin Time 12.2 sec (10.0-12.5)
[2024-05-07 15:04] LABS: Basophils % (A) 1 %; Eosinophils % (A) 2 %; HGB 13.5 gm/dL (11.4-16.0); Lymphocytes # (A) 1.3 k/uL (1.0-4.8); Lymphocytes % (A) 64 %; MCH 36.8 pg (25.0-35.0); MCHC 34.5 g/dL (31.0-37.0); MCV 106.5 fL (80.0-100.0); Macrocytosis Moderate; Monocytes # (A) 0.1 k/uL (0-1.0); Monocytes % (A) 4 %; Neutrophils # (A) 0.6 k/uL (1.3-7.7); Neutrophils % (A) 28 %; RBC 3.66 m/uL (3.80-5.40); RDW 15.1 % (11.5-15.5)
[2024-05-07 15:12] LABS: ALT 92 U/L (4-34); AST 203 U/L (14-36); African American GFR (CKD) >90 (>60 ml/min/1.73 sqM); Alkaline Phosphatase 232 U/L (38-126); Anion Gap 7 mmol/L; Blood Urea Nitrogen 11 mg/dL (7-17); Calcium 8.4 mg/dL (8.4-10.2); Carbon Dioxide 25 mmol/L (22-30); Chloride 101 mmol/L (98-107); Glucose 112 mg/dL (74-99); Magnesium 1.7 mg/dL (1.6-2.3); Non-African American GFR(CKD) 89 (>60 ml/min/1.73 sqM); Potassium 3.6 mmol/L (3.5-5.1); Sodium 133 mmol/L (137-145); Total Bilirubin 1.8 mg/dL (0.2-1.3)
--- NOTE | 2024-05-07 15:16 | XR ---
EXAMINATION TYPE: XR chest 2V DATE OF EXAM: 05/07/2024 2:48 PM CLINICAL INDICATION: Female, 39 years old with history of Chest Pain; [facility] COMPARISON: None TECHNIQUE: XR chest 2V Frontal view of the chest. FINDINGS: Lungs/Pleura: There is no evidence of pleural effusion, focal consolidation, or pneumothorax. Pulmonary vascularity: Unremarkable. Heart/mediastinum: Cardiomediastinal silhouette is unremarkable. Musculoskeletal: No acute osseous pathology. Other findings: None IMPRESSION: No acute cardiopulmonary disease/process.
[2024-05-07 16:05] LABS: Platelet Count 91 k/uL (150-450)
--- NOTE | 2024-05-07 16:22 | ED ---
Chest Pain HPI - General Source: patient, RN notes reviewed Mode of arrival: ambulatory Limitations: no limitations <Larissa Kern - Last Filed: 05/07/24 16:22> - General Source: patient, RN notes reviewed Mode of arrival: ambulatory Limitations: no limitations - History of Present Illness MD Complaint: chest pain <Maya Wood - Last Filed: 05/07/24 23:54> - General Chief Complaint: Chest Pain Stated Complaint: chest pain Time Seen by Provider: 05/07/24 16:22 - History of Present Illness Initial Comments: Quick note: Presented to the ER with a chief complaint of chest pain. Patient states she is detoxing from alcohol. Last drink 2 nights ago. She typically drinks half a pint a day. Denies any seizures or history of DTs with withdrawal. Patient reports chest discomfort. She also is reporting right upper quadrant abdominal pain (Larissa Kern) This is a 39-year-old female who presents to the emergency department for chest pain. Patient is currently is [facility] for alcohol abuse and her last drink was 2 nights ago. She has a 1/2 pint daily. States that she occasionally gets chest pain and shortness of breath when going through withdrawals. Pain is described as being in the right side of the chest and right upper quadrant. Does report some associated shortness of breath. Denies any nausea or vomiting. (Maya Wood) - Related Data Allergies Allergy/AdvReac Type Severity Reaction Status Date / Time No Known Allergies Allergy Verified 05/07/24 14:27 Review of Systems ROS Other: All systems not noted in ROS Statement are negative. <Larissa Kern - Last Filed: 05/07/24 16:22> ROS Other: All systems not noted in ROS Statement are negative. <Maya Wood - Last Filed: 05/07/24 23:54> ROS Statement: Those systems with pertinent positive or pertinent negative responses have been documented in the HPI. Past Medical History Past Medical History: No Reported History Additional Past Medical History / Comment(s): heart murmur History of Any Multi-Drug Resistant Organisms: None Reported Past Surgical History: No Surgical Hx Reported Additional Past Surgical History / Comment(s): facial Past Anesthesia/Blood Transfusion Reactions: No Reported Reaction Past Psychological History: No Psychological Hx Reported Smoking Status: Current every day smoker Past Alcohol Use History: Abuse, Daily Past Drug Use History: Marijuana - Past Family History Mother Family Medical History: Thyroid Disorder <Larissa Kern - Last Filed: 05/07/24 16:22> General Exam Limitations: no limitations <Lairssa Kern - Last Filed: 05/07/24 16:22> Limitations: no limitations General appearance: alert, in no apparent distress Head exam: Present: atraumatic, normocephalic, normal inspection Respiratory exam: Present: normal lung sounds bilaterally. Absent: respiratory distress, wheezes, rales, rhonchi, stridor Cardiovascular Exam: Present: regular rate, normal rhythm, normal heart sounds. Absent: systolic murmur, diastolic murmur, rubs, gallop, clicks GI/Abdominal exam: Present: soft, tenderness (RUQ), normal bowel sounds. Absent: distended, guarding, rebound, rigid Neurological exam: Present: alert, oriented X3, CN II-XII intact Psychiatric exam: Present: normal affect, normal mood Skin exam: Present: warm, dry, intact, normal color. Absent: rash <Maya Wood - Last Filed: 05/07/24 23:54> - General Exam Comments Initial Comments: Visual Physical Exam Vital signs reviewed General: Well-appearing, nontoxic, no acute distress. Head: Normocephalic, atraumatic Eyes: PERRLA, EOMI ENT: Airway patent Chest: Nonlabored breathing Skin: No visual rash, normal skin tone Neuro: Alert and oriented 3 Musculoskeletal: No gross abnormalities (Larissa Kern) Course Vital Signs 05/07/24 05/07/24 05/07/24 14:24 18:01 18:13 Temperature 98 F Pulse Rate 113 H 86 Pulse Rate [ 87 Spring Former Hand ] Respiratory 18 16 Rate Blood Pressure 136/78 141/104 O2 Sat by Pulse 98 98 Oximetry 05/07/24 05/07/24 18:27 20:20 Temperature Pulse Rate 78 70 Pulse Rate [ Spring Former Hand ] Respiratory 16 20 Rate Blood Pressure 126/74 O2 Sat by Pulse 98 99 Oximetry Chest Pain MDM <Larissa Kern - Last Filed: 05/07/24 16:22> <Maya Wood - Last Filed: 09/06/24 23:54> - [facility] I performed the quick note portion of this chart. Electronically signed by Larissa Kern PA-C (Larissa Kern) This is a 39 year old female who presents to the emergency department for chest pain and abdominal pain. Was pt. sent in by a medical professional or institution? @ -[facility] Did you speak to anyone other than the patient for history? @ -No Did you review nursing and triage notes? @ -Yes, and I agree, it is accurate with regards to the patient's symptoms. Were old charts reviewed? @ -No Differential Diagnosis? @ -Differential Chest Pain: Stable Angina, Unstable Angina, STEMI, NSTEMI Aortic Dissection, Pneumothorax, Musculoskeletal, Esophageal Spasm GERD, Cholecystitis, Pancreatitis, Zoster, this is not meant to be an all-inclusive list. EKG interpreted by me (3pts min.)? @ -EKG interpreted by me demonstrating the following: Sinus rhythm. Ventricular rate 77 bpm, QRS duration 75 ms, QTc 385 ms. X-rays interpreted by me (1pt min.)? @ -Chest x-ray obtained, my interpretation identifies no localized consolidations or infiltrates. CT interpreted by me (1pt min.)? @ -Not obtained U/S interpreted by me (1pt. min.)? @ -Gallbladder ultrasound obtained. My interpretation identifies no evidence of cholelithiasis What testing was considered but not performed? (CT, X-rays, U/S, labs)? Why? @ -None What meds were considered but not given? Why? @ -None Did you discuss the management of the patient with other professionals? @ -No Did you reconcile home meds? @ -No Was smoking cessation discussed for >3mins.? @ -I discussed smoking cessation for greater than 3 minutes. The risk of smoking were discussed with the patient including but not limited to risks of cancer, stroke, coronary artery disease and COPD. Also discussed with patient were multiple methods of quitting smoking. Lastly we discussed the financial cost of smoking. Was critical care preformed (if so, how long)? @ -No Were there social determinants of health that impacted care today? How? (Homelessness, low income, unemployed, alcoholism, drug addiction, transportation, low edu. Level, literacy, decrease access to med. care, residential, rehab)? @ -Alcoholism, contributing to her symptoms. Was there de-escalation of care discussed even if they declined? (Discuss DNR or withdrawal of care, Hospice)? @ -No What co-morbidities impacted this encounter? (DM, HTN, Smoking, COPD, CAD, Cancer, CVA, Hep., AIDS, mental health diagnosis, sleep apnea, morbid obesity)? @ -Smoking, alcoholism Was patient admitted / discharged? @ -Discharged. Lab work demonstrates leukopenia, which has been present prior. LFTs are also mildly elevated, likely secondary to alcohol abuse. Initial troponin was 0.022. This was repeated at the 3-hour kalpesh and found to be 0.013. Chest x-ray reveals no acute process. Gallbladder US obtained as well as revealing no acute findings. Symptoms essentially resolved with Toradol. Patient was discharged back to [facility] in stable condition. Case discussed with ED attending Dr. Mohr. Return precautions reviewed in depth, the patient is instructed to return to the emergency department with any new, worsening, or concerning symptoms. Patient verbalized understanding. Undiagnosed new problem with uncertain prognosis? @ -None Drug Therapy requiring intensive monitoring for toxicity (Heparin, Nitro, Insulin, Cardizem)? @ -None Were any procedures done? @ -None Diagnosis/symptom? @ -Chest pain, abdominal pain Acute, or Chronic, or Acute on Chronic? @ -Acute Uncomplicated (without systemic symptoms) or Complicated (systemic symptoms)? @ -Uncomplicated Side effects of treatment? @ -None Exacerbation, Progression, or Severe Exacerbation] @ -Not applicable Poses a threat to life or bodily function? @ -Unlikely (Maya Wood) Disposition <Larissa Kern - Last Filed: 05/07/24 16:22> Is patient prescribed a controlled substance at d/c from ED?: No Time of Disposition: 19:35 <Maya Wood - Last Filed: 05/07/24 23:54> Clinical Impression: Chest pain, Abdominal pain, Nicotine dependence Disposition: HOME SELF-CARE Instructions (If sedation given, give patient instructions): Chest Pain (ED), Abdominal Pain (ED) Additional Instructions: Return to the emergency department with any new, worsening, or concerning symptoms. Follow up with your primary care provider in 1-2 days. Referrals: Saul Flowers MD [Primary Care Provider] - 1-2 days
--- NOTE | 2024-05-07 18:06 | US ---
EXAMINATION TYPE: US gallbladder DATE OF EXAM: 05/07/2024 COMPARISON: CT 2014 CLINICAL INDICATION: Female, 39 years old with history of RUQ pain; Chest pain TECHNIQUE: Multiple sonographic images of the right upper quadrant are obtained. FINDINGS: EXAM MEASUREMENTS: Liver Length: 15.9 cm Gallbladder Wall: 0.2 cm CBD: 0.3 cm Right Kidney: 10.0 x 3.5 x 4.2 cm Pancreas: visualized portions wnl, limited by overlying midline bowel gas Liver: wnl Gallbladder: wnl Evidence for sonographic Real's sign: no CBD: wnl Right Kidney: fullness of renal pelvis IMPRESSION: No acute process.
[2024-05-07] MEDS: LORazepam 2 MG/ML INJ IV STA (18:17)
[2024-05-07] MEDS: KETOROLAC 15 MG/ML 1 ML VIAL IVP STA (18:17)
[2024-05-07 19:33] LABS: Amylase 33 U/L (30-110); Lipase 174 U/L (23-300)
[2024-05-07 20:23] VITALS: BP 126/74; PULSE 70; RESP 20
== END 2024-05-07 20:23 | disposition home or self-care (01) ==
LOC: EC 13:54
DX: R07.9 Chest pain, unspecified
CPT/HCPCS: 36415; 71046; 76705; 80053; 82150; 83690; 83735; 84484; 85025; 85610; 85730; 93005

== ENCOUNTER 2024-07-09 10:06 | Inpatient (IN) | payer OTHER ==
--- NOTE | 2024-07-09 11:06 | ED ---
Seizure HPI - General Chief Complaint: Seizure Stated Complaint: seizure Time Seen by Provider: 07/09/24 10:42 Source: patient, EMS, RN notes reviewed Mode of arrival: EMS Limitations: no limitations - History of Present Illness Initial Comments: 39 year old female presents to the emergency department via EMS with chief complaint of seizure. She states that she does not have a history of seizures but has had alcohol withdrawal. While standing in the bathroom today she felt tremors then felt she was having a seizure, so she yelled seizure and went to the floor onto her left side where she states that she convulsed, without losing consciousness or hitting her head. She also states that she has been attempting to stop drinking, that she normally drinks a pint of liquor per day but she did drink last night. She denies illicit drug use, the only medication she takes is buspar for anxiety. - Related Data Allergies Allergy/AdvReac Type Severity Reaction Status Date / Time No Known Allergies Allergy Verified 07/09/24 10:32 Review of Systems ROS Statement: Those systems with pertinent positive or pertinent negative responses have been documented in the HPI. ROS Other: All systems not noted in ROS Statement are negative. Past Medical History Past Medical History: No Reported History Additional Past Medical History / Comment(s): heart murmur History of Any Multi-Drug Resistant Organisms: None Reported Past Surgical History: No Surgical Hx Reported Additional Past Surgical History / Comment(s): facial Past Anesthesia/Blood Transfusion Reactions: No Reported Reaction Past Psychological History: No Psychological Hx Reported, Anxiety, Depression Smoking Status: Current every day smoker Past Alcohol Use History: Abuse, Daily Past Drug Use History: Marijuana - Past Family History Mother Family Medical History: Thyroid Disorder General Exam General appearance: alert, in no apparent distress Head exam: Present: atraumatic, normocephalic, normal inspection Eye exam: Present: normal appearance, PERRL, EOMI. Absent: scleral icterus, conjunctival injection, periorbital swelling ENT exam: Present: normal exam, mucous membranes moist Neck exam: Present: normal inspection. Absent: tenderness, meningismus, lymphadenopathy Respiratory exam: Present: normal lung sounds bilaterally. Absent: respiratory distress, wheezes, rales, rhonchi, stridor Cardiovascular Exam: Present: regular rate, normal rhythm, normal heart sounds. Absent: systolic murmur, diastolic murmur, rubs, gallop, clicks GI/Abdominal exam: Present: soft, normal bowel sounds. Absent: distended, tenderness, guarding, rebound, rigid Extremities exam: Present: normal inspection, full ROM, normal capillary refill. Absent: tenderness, pedal edema, joint swelling, calf tenderness Back exam: Present: normal inspection Neurological exam: Present: alert, oriented X3, CN II-XII intact Expanded Cranial nerves: EOM's Intact: Normal, Tongue Deviation: Normal, Facial Sensation: Normal Psychiatric exam: Present: normal affect, normal mood Skin exam: Present: warm, dry, intact, normal color. Absent: rash Course Vital Signs 07/09/24 10:24 Pulse Rate 98 Respiratory 18 Rate Blood Pressure 120/80 O2 Sat by Pulse 98 Oximetry Medical Decision Making - Medical Decision Making Was pt. sent in by a medical professional or institution (, PA, HEAD OF COMMISSION DEPARTMENT, urgent care, hospital, or custodial...) When possible be specific @ -No Did you speak to anyone other than the patient for history (EMS, parent, family, police, friend...)? What history was obtained from this source @ - providing past medical history and current complaint Did you review nursing and triage notes (agree or disagree)? Why? @ -I reviewed and agree with nursing and triage notes Were old charts reviewed (outside hosp., previous admission, EMS record, old EKG, old radiological studies, urgent care reports/EKG's, custodial records)? Report findings @ -No old charts were reviewed Differential Diagnosis (chest pain, altered mental status, abdominal pain women, abdominal pain men, vaginal bleeding, weakness, fever, dyspnea, syncope, headache, dizziness, GI bleed, back pain, seizure, CVA, palpatations, mental health, musculoskeletal)? @ -Differential Seizure: Recurrent seizure disorder, febrile seizure, alcohol withdrawal, stimulants, meningitis, encephalitis, intercranial hemorrhage, intracranial tumor, stroke, eclampsia, thyrotoxicosis, hypocalcemia, hyponatremia, hypernatremia, hypomagnesemia, psychogenic, this is not meant to be an all-inclusive list. EKG interpreted by me (3pts min.). @ -As above X-rays interpreted by me (1pt min.). @ -None done CT interpreted by me (1pt min.). @ -None done U/S interpreted by me (1pt. min.). @ -None done What testing was considered but not performed or refused? (CT, X-rays, U/S, labs)? Why? @ -None What meds were considered but not given or refused? Why? @ -None Did you discuss the management of the patient with other professionals (professionals i.e. , PA, HEAD OF COMMISSION DEPARTMENT, lab, RT, psych nurse, social media marketing manager, eligibility services representative, teacher, v/stol landing signal officer, trimming caser)? Give summary @ -Dr. Pacheco for admission Was smoking cessation discussed for >3mins.? @ -No Was critical care preformed (if so, how long)? @ -No Were there social determinants of health that impacted care today? How? (Homelessness, low income, unemployed, alcoholism, drug addiction, transportation, low edu. Level, literacy, decrease access to med. care, snf, rehab)? @ -No Was there de-escalation of care discussed even if they declined (Discuss DNR or withdrawal of care, Hospice)? DNR status @ -No What co-morbidities impacted this encounter? (DM, HTN, Smoking, COPD, CAD, Cancer, CVA, ARF, Chemo, Hep., AIDS, mental health diagnosis, sleep apnea, morbid obesity)? @ -None Was patient admitted / discharged? Hospital course, mention meds given and route, prescriptions, significant lab abnormalities, going to OR and other pertinent info. @ -[Admitted patient presented having witnessed seizure at home no history of seizures this is related to alcohol withdrawal as she states she is ventricularly supplanted they and states that she tried to stop drinking. P atient does have some mild tremors. Patient will be admitted for further evaluation and treatment. Undiagnosed new problem with uncertain prognosis? @ -No Drug Therapy requiring intensive monitoring for toxicity (Heparin, Nitro, Insulin, Cardizem)? @ -No Were any procedures done? @ -No Diagnosis/symptom? @ -Alcohol withdrawal seizure Acute, or Chronic, or Acute on Chronic? @ -Acute Uncomplicated (without systemic symptoms) or Complicated (systemic symptoms)? @ -Complicated Side effects of treatment? @ -No Exacerbation, Progression, or Severe Exacerbation? @ -No Poses a threat to life or bodily function? How? (Chest pain, USA, GA, pneumonia, PE, COPD, DKA, ARF, appy, cholecystitis, CVA, Diverticulitis, Homicidal, Suicidal, threat to staff... and all critical care pts) @ -Yes alcohol withdrawal - Lab Data Result diagrams: 07/09/24 11:41 07/09/24 11:41 Lab Results 07/09/24 07/09/24 07/09/24 Range/Units 11:41 11:41 11:41 WBC 4.0 (3.8-10.6) k/uL RBC 3.68 L (3.80-5.40) m/uL Hgb 13.1 (11.4-16.0) gm/dL Hct 39.3 (34.0-46.0) % MCV 106.8 H (80.0-100.0) fL MCH 35.6 H (25.0-35.0) pg MCHC 33.3 (31.0-37.0) g/dL RDW 13.3 (11.5-15.5) % MPV 8.2 Macrocytosis Moderate Sodium 131 L (137-145) mmol/L Potassium 3.3 L (3.5-5.1) mmol/L Chloride 103 (98-107) mmol/L Carbon Dioxide 25 (22-30) mmol/L Anion Gap 3 mmol/L BUN 10 (7-17) mg/dL Creatinine 0.67 (0.52-1.04) mg/dL Est GFR (CKD-EPI)AfAm >90 (>60 ml/min/1.73 sqM) Est GFR (CKD-EPI)NonAf >90 (>60 ml/min/1.73 sqM) Glucose 89 (74-99) mg/dL Calcium 7.4 L (8.4-10.2) mg/dL Magnesium 1.7 (1.6-2.3) mg/dL Total Bilirubin 1.5 H (0.2-1.3) mg/dL AST 194 H (14-36) U/L ALT 80 H (4-34) U/L Alkaline Phosphatase 177 H (38-126) U/L Total Protein 5.8 L (6.3-8.2) g/dL Albumin 2.9 L (3.5-5.0) g/dL Urine Color Yellow Urine Appearance Cloudy H (Clear) Urine pH 6.0 (5.0-8.0) Ur Specific Britton 1.014 (1.001-1.035) Urine Protein Trace H (Negative) Urine Glucose (UA) Negative (Negative) Urine Ketones Negative (Negative) Urine Blood Large H (Negative) Urine Nitrite Negative (Negative) Urine Bilirubin Negative (Negative) Urine Urobilinogen <2.0 (<2.0) mg/dL Ur Leukocyte Esterase Small H (Negative) Urine RBC 115 H (0-5) /hpf Urine WBC 6 H (0-5) /hpf Ur Squamous Epith Cells <1 (0-4) /hpf Urine Bacteria Rare H (None) /hpf Urine Mucus Occasional H (None) /hpf Urine HCG, Qual (Not Detectd) Urine Opiates Screen Not Detected (NotDetected) Ur Oxycodone Screen Not Detected (NotDetected) Urine Methadone Screen Not Detected (NotDetected) Ur Barbiturates Screen Not Detected (NotDetected) U Tricyclic Antidepress Not Detected (NotDetected) Ur Phencyclidine Scrn Not Detected (NotDetected) Ur Amphetamines Screen Detected H (NotDetected) U Methamphetamines Scrn Detected H (NotDetected) U Benzodiazepines Scrn Not Detected (NotDetected) Urine Cocaine Screen Not Detected (NotDetected) U Marijuana (THC) Screen Not Detected (NotDetected) Serum Alcohol <10 mg/dL 07/09/24 Range/Units 11:41 WBC (3.8-10.6) k/uL RBC (3.80-5.40) m/uL Hgb (11.4-16.0) gm/dL Hct (34.0-46.0) % MCV (80.0-100.0) fL MCH (25.0-35.0) pg MCHC (31.0-37.0) g/dL RDW (11.5-15.5) % MPV Macrocytosis Sodium (137-145) mmol/L Potassium (3.5-5.1) mmol/L Chloride (98-107) mmol/L Carbon Dioxide (22-30) mmol/L Anion Gap mmol/L BUN (7-17) mg/dL Creatinine (0.52-1.04) mg/dL Est GFR (CKD-EPI)AfAm (>60 ml/min/1.73 sqM) Est GFR (CKD-EPI)NonAf (>60 ml/min/1.73 sqM) Glucose (74-99) mg/dL Calcium (8.4-10.2) mg/dL Magnesium (1.6-2.3) mg/dL Total Bilirubin (0.2-1.3) mg/dL AST (14-36) U/L ALT (4-34) U/L Alkaline Phosphatase (38-126) U/L Total Protein (6.3-8.2) g/dL Albumin (3.5-5.0) g/dL Urine Color Urine Appearance (Clear) Urine pH (5.0-8.0) Ur Specific Britton (1.001-1.035) Urine Protein (Negative) Urine Glucose (UA) (Negative) Urine Ketones (Negative) Urine Blood (Negative) Urine Nitrite (Negative) Urine Bilirubin (Negative) Urine Urobilinogen (<2.0) mg/dL Ur Leukocyte Esterase (Negative) Urine RBC (0-5) /hpf Urine WBC (0-5) /hpf Ur Squamous Epith Cells (0-4) /hpf Urine Bacteria (None) /hpf Urine Mucus (None) /hpf Urine HCG, Qual Not Detected (Not Detectd) Urine Opiates Screen (NotDetected) Ur Oxycodone Screen (NotDetected) Urine Methadone Screen (NotDetected) Ur Barbiturates Screen (NotDetected) U Tricyclic Antidepress (NotDetected) Ur Phencyclidine Scrn (NotDetected) Ur Amphetamines Screen (NotDetected) U Methamphetamines Scrn (NotDetected) U Benzodiazepines Scrn (NotDetected) Urine Cocaine Screen (NotDetected) U Marijuana (THC) Screen (NotDetected) Serum Alcohol mg/dL Disposition Clinical Impression: Alcohol withdrawal seizure Disposition: ADMITTED IP TO THIS HOSP Referrals: Saul Flowers MD [STAFF PHYSICIAN] - 1-2 days Time of Disposition: 13:05
[2024-07-09] MEDS: SODIUM CHLORIDE 0.9% 1,000 ML IV STA (11:20)
[2024-07-09 12:14] LABS: Appearance,Urine Cloudy (Clear); Bacteria,Urine Rare /hpf; Bilirubin,Urine Negative (Negative); Blood,Urine Large (Negative); Color,Urine Yellow; Glucose,Urine (UA) Negative (Negative); Ketones,Urine Negative (Negative); Leukocyte Esterase,Urine Small (Negative); Mucus,Urine Occasional /hpf; Nitrite,Urine Negative (Negative); Protein,Urine Trace (Negative); RBC,Urine 115 /hpf (0-5); Specific Gravity,Urine 1.014 (1.001-1.035); Squamous Epithelial Cell,Urine <1 /hpf (0-4); Urobilinogen,Urine <2.0 mg/dL (<2.0); WBC,Urine 6 /hpf (0-5)
[2024-07-09 12:22] LABS: Basophils % (A) 0 %; Eosinophils % (A) 0 %; HCT 39.3 % (34.0-46.0); HGB 13.1 gm/dL (11.4-16.0); Lymphocytes # (A) 0.6 k/uL (1.0-4.8); Lymphocytes % (A) 15 %; MCH 35.6 pg (25.0-35.0); MCHC 33.3 g/dL (31.0-37.0); MCV 106.8 fL (80.0-100.0); Macrocytosis Moderate; Mean Platelet Volume 8.2; Monocytes # (A) 0.2 k/uL (0-1.0); Monocytes % (A) 4 %; Neutrophils # (A) 3.2 k/uL (1.3-7.7); Neutrophils % (A) 79 %; RBC 3.68 m/uL (3.80-5.40); RDW 13.3 % (11.5-15.5)
[2024-07-09 12:27] LABS: ALT 80 U/L (4-34); AST 194 U/L (14-36); African American GFR (CKD) >90 (>60 ml/min/1.73 sqM); Albumin 2.9 g/dL (3.5-5.0); Alcohol <10 mg/dL; Alkaline Phosphatase 177 U/L (38-126); Anion Gap 3 mmol/L; Blood Urea Nitrogen 10 mg/dL (7-17); Calcium 7.4 mg/dL (8.4-10.2); Carbon Dioxide 25 mmol/L (22-30); Chloride 103 mmol/L (98-107); Glucose 89 mg/dL (74-99); Magnesium 1.7 mg/dL (1.6-2.3); Non-African American GFR(CKD) >90 (>60 ml/min/1.73 sqM); Potassium 3.3 mmol/L (3.5-5.1); Sodium 131 mmol/L (137-145); Total Bilirubin 1.5 mg/dL (0.2-1.3); Total Protein 5.8 g/dL (6.3-8.2)
[2024-07-09 12:36] LABS: Amphetamine Screen,Urine Detected (NotDetected); Barbiturate Screen,Urine Not Detected (NotDetected); Benzodiazepines Screen,Urine Not Detected (NotDetected); Cocaine Screen,Urine Not Detected (NotDetected); Methadone Screen, Urine Not Detected (NotDetected); Opiate Screen,Urine Not Detected (NotDetected); Oxycodone Screen, Urine Not Detected (NotDetected); Phencyclidine Screen,Urine Not Detected (NotDetected); Tricyclic Antidepressant,Urine Not Detected (NotDetected); Urn Cannabinoid Scrn Not Detected (NotDetected)
[2024-07-09] MEDS ORDERED: LORazepam 0.5 MG TAB PO PRN (13:02)
[2024-07-09] MEDS ORDERED: LORazepam 2 MG/ML INJ IV PRN (13:02)
[2024-07-09] MEDS ORDERED: NALOXONE 0.4 MG/ML 1 ML VIAL IV PRN (13:05)
[2024-07-09] MEDS: LORazepam 2 MG/ML INJ IV PRN (13:33)
[2024-07-09] MEDS: SODIUM CHLORIDE 0.9% 1,000 ML IV SCH (13:40)
[2024-07-09 14:22] LABS: Platelet Count 73 k/uL (150-450)
--- NOTE | 2024-07-09 17:27 | P.HPIM ---
History of Present Illness H&P Date: 07/09/24 Chief Complaint: Seizures Patient is a 39-year-old female was brought to the hospital by EMS due to seizures. Patient started having tremors and felt like having a seizure while she was standing in the bathroom. She held seizure and went to floor onto her left side and started having convulsions. Denied any loss of consciousness or hitting her head. Patient states that she has been attempting to stop drinking. Normally drinks about 1 pint daily. Last drink was yesterday. Prior history of alcohol withdrawals but denied any history of prior seizures. Patient was recently started on BuSpar and Wellbutrin by her [facility] physician about a month ago. Denied any fever or chills. No headache. No cough or sputum production. No chest pain or shortness of breath. No nausea or vomiting. No leg swelling. No recent illnesses. Patient does smoke on daily basis. Laboratory showed WBC 4.0 hemoglobin 13.1 and MCV 106.8 and platelets 73 sodium 131 potassium 3.3 BUN 10 and creatinine 0.67 and calcium 7.4 magnesium 1.7 bilirubin level total 1.5 AST 194 ALT 18 alk phos 177 and total protein 5.8 and albumin 2.8. Urinalysis showed large blood leukocyte esterase small and RBCs 115 WBC 6. Review of Systems Constitutional: Patient denies any fever or chills . No generalized weakness or weight loss. Abdomen: Patient denied nausea vomiting and diarrhea and abdominal pain. Cardiovascular: Patient denies any chest pain or short of breath no palpitations. Respiratory: patient denied any cough or sputum production. No shortness of breath Neurologic: Patient denied any numbness or tingling. no headache. Musculoskeletal: Patient denies any complaints of joint swelling or deformity. Skin: Negative Psychiatric: Negative Endocrine: No heat or cold intolerance. No recent weight gain. Genitourinary: No dysuria or hematuria. All other 14 point ROS negative except the above Past Medical History Past Medical History: No Reported History Additional Past Medical History / Comment(s): heart murmur History of Any Multi-Drug Resistant Organisms: None Reported Past Surgical History: No Surgical Hx Reported Additional Past Surgical History / Comment(s): facial Past Anesthesia/Blood Transfusion Reactions: No Reported Reaction Past Psychological History: No Psychological Hx Reported, Anxiety, Depression Smoking Status: Current every day smoker Past Alcohol Use History: Abuse, Daily Past Drug Use History: Marijuana - Past Family History Mother Family Medical History: Thyroid Disorder Medications and Allergies Home Medications Medication Instructions Recorded Confirmed Type buPROPion HCL [buPROPion HCL XL] 150 mg PO DAILY 07/09/24 07/09/24 History busPIRone HCl [Buspar] 10 mg PO TID 07/09/24 07/09/24 History Allergies Allergy/AdvReac Type Severity Reaction Status Date / Time No Known Allergies Allergy Verified 07/09/24 13:21 Physical Exam Vitals: Vital Signs Pulse Resp BP Pulse Ox 07/09/24 10:24 98 18 120/80 98 Intake and Output 07/09/24 07/09/24 07/09/24 06:59 14:59 22:59 Other: Weight 45.359 kg PHYSICAL EXAMINATION: Patient is lying in the bed comfortably, no acute distress, awake alert and oriented but anxious... HEENT: Normocephalic. Neck is supple. Pupils reactive. Nostrils clear. Oral cavity is moist. Neck reveals no JVD, carotid bruits, or thyromegaly. CHEST EXAMINATION: Trachea is central. Symmetrical expansion. Lung barajas clear to auscultation and percussion. CARDIAC: Normal S1, S2 with no gallops. No murmurs ABDOMEN: Soft. Bowel sounds normal. No organomegaly. No abdominal bruits. Extremities: reveal no edema. No clubbing or cyanosis Neurologically awake, alert, oriented x3 with well-coordinated movements. No focal deficits noted. Tremors. Skin: No rash or skin lesions. Psychiatric: Coperative. Nonsuicidal anxious and shaky Musculoskeletal: No joint swelling or deformity. Normal range of motion. Results CBC & Chem 7: 07/09/24 11:41 07/09/24 11:41 Labs: Abnormal Lab Results - Last 24 Hours (Table) 07/09/24 07/09/24 07/09/24 Range/Units 11:41 11:41 11:41 RBC 3.68 L (3.80-5.40) m/uL MCV 106.8 H (80.0-100.0) fL MCH 35.6 H (25.0-35.0) pg Plt Count 73 L (150-450) k/uL Lymphocytes # 0.6 L (1.0-4.8) k/uL Sodium 131 L (137-145) mmol/L Potassium 3.3 L (3.5-5.1) mmol/L Calcium 7.4 L (8.4-10.2) mg/dL Total Bilirubin 1.5 H (0.2-1.3) mg/dL AST 194 H (14-36) U/L ALT 80 H (4-34) U/L Alkaline Phosphatase 177 H (38-126) U/L Total Protein 5.8 L (6.3-8.2) g/dL Albumin 2.9 L (3.5-5.0) g/dL Urine Appearance Cloudy H (Clear) Urine Protein Trace H (Negative) Urine Blood Large H (Negative) Ur Leukocyte Esterase Small H (Negative) Urine RBC 115 H (0-5) /hpf Urine WBC 6 H (0-5) /hpf Urine Bacteria Rare H (None) /hpf Urine Mucus Occasional H (None) /hpf Ur Amphetamines Screen Detected H (NotDetected) U Methamphetamines Scrn Detected H (NotDetected) Thrombosis Risk Factor Assmnt - DVT/VTE Prophylaxis DVT/VTE Prophylaxis: Pharmacologic Prophylaxis ordered Assessment and Plan Assessment: Acute seizure episode likely alcohol withdrawal seizure Hypovolemic hyponatremia Hypokalemia Macrocytosis and thrombocytopenia due to alcohol abuse Elevated liver enzymes and bilirubin level UDS positive for methamphetamines and amphetamines Alcohol use disorder Marijuana use disorder Currently everyday smoker DVT prophylaxis with heparin subcu Plan: Patient will be continued on IV hydration with normal saline. Continue to monitor for alcohol withdrawal symptoms. Replace electrolytes. Neurology was consulted for further evaluation of seizures. Cardiac DVT prophylaxis heparin subcu. Seizure precautions and fall precautions and follow- up closely. Time with Patient: Greater than 30
[2024-07-09] MEDS: POTASSIUM CHLORIDE ER 20 MEQ TAB.ER PO STA (17:49)
[2024-07-09] MEDS: MAGNESIUM SULFATE-D5W PMX 1 GM in DEXTROSE/WATER 1 100ML.BAG IVPB ONE (17:49)
[2024-07-09] MEDS: LORazepam 1 MG TAB PO PRN (19:58)
[2024-07-09] MEDS: HEPARIN SODIUM,PORCINE 5,000 UNIT/ML 1 ML VIAL SQ SCH (20:25)
[2024-07-09] MEDS: ONDANSETRON 4 MG/2 ML VIAL IVP PRN (21:38)
[2024-07-09] MEDS: IBUPROFEN 600 MG TAB PO PRN (22:50)
[2024-07-10] MEDS: THIAMINE 100 MG TAB PO SCH (08:03)
[2024-07-10] MEDS: LORazepam 2 MG/ML INJ IV PRN (08:20)
[2024-07-10 11:52] LABS: Basophils # (A) 0.02 X 10*3/uL (0.00-0.10); Basophils % (A) 0.6 %; Eosinophils # (A) 0.05 X 10*3/uL (0.04-0.35); Eosinophils % (A) 1.5 %; HCT 34.3 % (37.2-46.3); HGB 11.9 g/dL (12.0-15.0); Immature Grans, Automated 0 %; Immature Platelet Fraction 5.4 % (1.1-6.1); Lymphocytes # (A) 1.22 X 10*3/uL (0.90-5.00); Lymphocytes % (A) 36.9 %; MCH 36.1 pg (27.0-32.0); MCHC 34.7 g/dL (32.0-37.0); MCV 103.9 FL (80.0-97.0); Macrocytosis (M) 2+; Mean Platelet Volume 11.2 FL (9.5-12.2); Monocytes # (A) 0.21 X 10*3/uL (0.20-1.00); Monocytes % (A) 6.3 %; NRBC Per 100 WBC 0 X 10*3/uL (0.00-0.01); Neutrophils # (A) 1.81 X 10*3/uL (1.80-7.70); Neutrophils % (A) 54.7 %; Platelet Count 76 X 10*3/uL (140-440); RDW 13.3 % (11.5-14.5); Target Cells 2+; WBC 3.31 X 10*3/uL (4.50-10.00)
[2024-07-10 12:10] VITALS: BMI 16.6
[2024-07-10 12:37] LABS: ALT 64 U/L (8-44); AST 123 U/L (13-35); Albumin 3.2 g/dL (3.8-4.9); Albumin/Globulin Ratio 1.28 Ratio (1.60-3.17); Alkaline Phosphatase 143 U/L (41-126); Blood Urea Nitrogen 6.9 mg/dL (9.0-27.0); Calcium 7.9 mg/dL (8.7-10.3); Carbon Dioxide 22.8 mmol/L (21.6-31.8); Chloride 104 mmol/L (96-109); Globulin 2.5 g/dL (1.6-3.3); Glucose 108 mg/dL (70-110); Potassium 3.9 mmol/L (3.5-5.5); Sodium 136 mmol/L (135-145); Total Bilirubin 1.3 mg/dL (0.3-1.2); Total Protein 5.7 g/dL (6.2-8.2)
[2024-07-10] MEDS: LORazepam 1 MG TAB PO PRN (12:55)
--- NOTE | 2024-07-10 13:54 | P.PN ---
Subjective Progress Note Date: 07/10/24 chance is a 39-year-old female was brought to the hospital by EMS due to seizures. Patient started having tremors and felt like having a seizure while she was standing in the bathroom. She held seizure and went to floor onto her left side and started having convulsions. Denied any loss of consciousness or hitting her head. Patient states that she has been attempting to stop drinking. Normally drinks about 1 pint daily. Last drink was yesterday. Prior history of alcohol withdrawals but denied any history of prior seizures. Patient was recently started on BuSpar and Wellbutrin by her [facility] physician about a month ago. Denied any fever or chills. No headache. No cough or sputum production. No chest pain or shortness of breath. No nausea or vomiting. No leg swelling. No recent illnesses. Patient does smoke on daily basis. Laboratory showed WBC 4.0 hemoglobin 13.1 and MCV 106.8 and platelets 73 sodium 131 potassium 3.3 BUN 10 and creatinine 0.67 and calcium 7.4 magnesium 1.7 bilirubin level total 1.5 AST 194 ALT 18 alk phos 177 and total protein 5.8 and albumin 2.8. Urinalysis showed large blood leukocyte esterase small and RBCs 115 WBC 6 07/10. Patient seen and examined. No further episodes of seizures. Denies any weakness of any extremity. REVIEW OF SYSTEMS: CONSTITUTIONAL: No fever, no malaise,. CARDIOVASCULAR: No chest pain, no palpitations, no syncope. PULMONARY: No shortness of breath, no cough, GASTROINTESTINAL: No diarrhea, no nausea, no vomiting, no abdominal pain. NEUROLOGICAL: No headaches, no weakness, PHYSICAL EXAMINATION: GENERAL: The patient is alert and oriented x3, not in any acute distress. Well developed, well nourished. HEENT: Pupils are round and equally reacting to light. EOMI. No scleral icterus. No conjunctival pallor. Normocephalic, atraumatic. No pharyngeal erythema. No thyromegaly. CARDIOVASCULAR: S1 and S2 present. No murmurs, rubs, or gallops. PULMONARY: Chest is clear to auscultation, no wheezing or crackles. ABDOMEN: Soft, nontender, nondistended, normoactive bowel sounds. No palpable organomegaly. MUSCULOSKELETAL: No joint swelling or deformity. EXTREMITIES: No cyanosis, clubbing, or pedal edema. NEUROLOGICAL: Gross neurological examination did not reveal any focal deficits. SKIN: No rashes. Assessment and plan Acute seizure episode likely alcohol withdrawal seizure Hypovolemic hyponatremia Hypokalemia Macrocytosis and thrombocytopenia due to alcohol abuse Elevated liver enzymes and bilirubin level UDS positive for methamphetamines and amphetamines Alcohol use disorder Marijuana use disorder Currently everyday smoker Monitor vital signs Monitor CBC Monitor CMP Continue telemetry monitoring Seizure precaution Aspiration precaution Ordered CIWA protocol Ordered high-dose thiamine and folic acid Neurology consulted Labs and medication were reviewed.. Continue same treatment. Continue with symptomatic treatment. Resume home medication. Monitor labs and vitals. DVT and GI prophylaxis. Further recommendations as per clinical course of the patient Dictation was produced using [employer] dictation software. please excuse any grammatical, word or spelling errors. Objective - Vital Signs Vital signs: Vital Signs Temp 97.4 F L 07/10/24 07:15 Pulse 70 07/10/24 07:15 Resp 17 07/10/24 07:15 BP 110/70 07/10/24 07:15 Pulse Ox 99 07/10/24 07:15 FiO2 Intake & Output 07/09/24 07/10/24 07/10/24 18:59 06:59 18:59 Weight 45.359 kg 45.359 kg Other: # Voids 1 - Labs CBC & Chem 7: 07/10/24 03:30 07/10/24 03:30 Labs: Abnormal Lab Results - Last 24 Hours (Table) 07/09/24 07/09/24 07/09/24 Range/Units 11:41 11:41 11:41 RBC 3.68 L (3.80-5.40) m/uL MCV 106.8 H (80.0-100.0) fL MCH 35.6 H (25.0-35.0) pg Plt Count 73 L (150-450) k/uL Lymphocytes # 0.6 L (1.0-4.8) k/uL Sodium 131 L (137-145) mmol/L Potassium 3.3 L (3.5-5.1) mmol/L Calcium 7.4 L (8.4-10.2) mg/dL Total Bilirubin 1.5 H (0.2-1.3) mg/dL AST 194 H (14-36) U/L ALT 80 H (4-34) U/L Alkaline Phosphatase 177 H (38-126) U/L Total Protein 5.8 L (6.3-8.2) g/dL Albumin 2.9 L (3.5-5.0) g/dL Urine Appearance Cloudy H (Clear) Urine Protein Trace H (Negative) Urine Blood Large H (Negative) Ur Leukocyte Esterase Small H (Negative) Urine RBC 115 H (0-5) /hpf Urine WBC 6 H (0-5) /hpf Urine Bacteria Rare H (None) /hpf Urine Mucus Occasional H (None) /hpf Ur Amphetamines Screen Detected H (NotDetected) U Methamphetamines Scrn Detected H (NotDetected)
--- NOTE | 2024-07-10 14:03 | P.PN ---
Progress Note - Text Progress Note Date: 07/10/24 I spoke with the primary attending (Dr. Flowers) and he stated he does not need neurology and he is going to discharge the patient home. Please notify neurology team if still needed.
--- NOTE | 2024-07-10 14:17 | P.CNNES ---
History of Present Illness Consult date: 07/10/24 Requesting physician: Yung Stein Reason for Consult: seizure History of Present Illness: This is a 39-year-old woman who present emergency department because of seizure- like activity. Patient stated that yesterday she had an episode where her left hand cramped up and that cramping traveled up proximally then she was on the floor and she does not recall what happened. But she stated then her boyfriend stated that she was having jerking of her extremity her eyes rolled back and does not recall how long the episode lasted for. She stated EMS was called and she had an episode that was about to happen but she stated that was aborted because of action in the muscle that was given by EMS but before getting that m edication she felt the cramping but stated it was aborted because of that medication she felt. She states that she drinks alcohol on a daily basis but states does not drink a lot but upon further questioning she states she drinks half a pint and her last drink was 2 to 3 days prior to that. She denies any tongue bite, urinary incontinence or bowel incontinence. Denies any prior history of seizures. Provide me whether she has been off of alcohol for several days in the past and she had a seizure or not. Denies any focal weakness numbness visual disturbance. She denies of any drug use. She stated the day prior her seizure-like activity she was started on buspirone. Some of the workup during this hospital visit consisted of: AST is 194 ALT is 80, sodium is 131, glucose is 89, calcium 7.4, magnesium is 1.7. Urine drug screen is positive for amphetamine and methamphetamine. Serum a lcohol is less than 10. Urine hCG is not detected. Review of Systems As per HPI. Past Medical History Past Medical History: No Reported History Additional Past Medical History / Comment(s): heart murmur History of Any Multi-Drug Resistant Organisms: None Reported Past Surgical History: No Surgical Hx Reported Additional Past Surgical History / Comment(s): facial Past Anesthesia/Blood Transfusion Reactions: No Reported Reaction Past Psychological History: No Psychological Hx Reported, Anxiety, Depression Smoking Status: Current every day smoker Past Alcohol Use History: Abuse, Daily Past Drug Use History: None Reported - Past Family History Mother Family Medical History: Thyroid Disorder Medications and Allergies Home Medications Medication Instructions Recorded Confirmed Type buPROPion HCL [buPROPion HCL XL] 150 mg PO DAILY 07/09/24 07/09/24 History busPIRone HCl [Buspar] 10 mg PO TID 07/09/24 07/09/24 History Allergies Allergy/AdvReac Type Severity Reaction Status Date / Time No Known Allergies Allergy Verified 07/09/24 13:21 Physical Examination - Vital Signs Vital Signs: Vital Signs Temp Pulse Pulse Resp BP BP Pulse Ox 07/10/24 07:15 97.4 F L 70 17 110/70 99 07/10/24 02:05 97.3 F L 73 17 128/86 100 07/09/24 22:04 97.6 F 75 17 128/84 96 07/09/24 20:56 84 124/81 100 07/09/24 17:31 80 18 111/65 100 Intake and Output 07/09/24 07/10/24 07/10/24 22:59 06:59 14:59 Intake Total 480 Balance 480 Intake: Oral 480 Other: # Voids 1 Weight 45.359 kg 45.359 kg GENERAL: The patient is sitting on side of bed and is not in acute distress. NEUROLOGICAL: Higher mental function: The patient is awake, alert, oriented to self, place and time. Seems somewhat confused following commands. No aphasia and no neglect. Cranial nerves: The pupils are round, equal and reactive to light and accommodation. Visual barajas are full to confrontation throughout. Extraocular movement is intact no nystagmus is noted. Facial sensation is normal to touch throughout. The facial strength is normal throughout. Hearing is normal bilaterally to hand rub. Tongue is midline and moved [id number] without any difficulty. No dysarthria is noted. Shoulder shrug is normal bilaterally. Motor: The strength is 5 over 5 throughout. Normal tone and bulk. Cerebellum: Normal finger to nose heel to chin bilaterally. Sensation: Sensation is normal to touch throughout. Plantars are downgoing bilaterally. Results - Laboratory Findings CBC and BMP: 07/10/24 03:30 07/10/24 03:30 Abnormal Lab Findings: Abnormal Labs 07/09/24 07/09/24 07/09/24 11:41 11:41 11:41 WBC RBC 3.68 L Hgb Hct MCV 106.8 H MCH 35.6 H Plt Count 73 L Lymphocytes # 0.6 L Macrocytosis (manual) Target Cells Sodium 131 L Potassium 3.3 L BUN BUN/Creatinine Ratio Calcium 7.4 L Total Bilirubin 1.5 H AST 194 H ALT 80 H Alkaline Phosphatase 177 H Total Protein 5.8 L Albumin 2.9 L Albumin/Globulin Ratio Urine Appearance Cloudy H Urine Protein Trace H Urine Blood Large H Ur Leukocyte Esterase Small H Urine RBC 115 H Urine WBC 6 H Urine Bacteria Rare H Urine Mucus Occasional H Ur Amphetamines Screen Detected H U Methamphetamines Scrn Detected H 07/10/24 07/10/24 03:30 03:30 WBC 3.31 L RBC 3.30 L Hgb 11.9 L Hct 34.3 L MCV 103.9 H MCH 36.1 H Plt Count 76 L Lymphocytes # Macrocytosis (manual) 2+ A Target Cells 2+ A Sodium Potassium BUN 6.9 L BUN/Creatinine Ratio 11.50 L Calcium 7.9 L Total Bilirubin 1.3 H AST 123 H ALT 64 H Alkaline Phosphatase 143 H Total Protein 5.7 L Albumin 3.2 L Albumin/Globulin Ratio 1.28 L Urine Appearance Urine Protein Urine Blood Ur Leukocyte Esterase Urine RBC Urine WBC Urine Bacteria Urine Mucus Ur Amphetamines Screen U Methamphetamines Scrn Assessment and Plan Assessment: This is a 39-year-old woman with history of heavy alcohol use who presents because of seizure-like activity. She stated that her first time having seizure-like activity and she drinks almost on a daily basis and she has not drank 2 to 3 days prior to her seizure-like activity and was placed on Buspirone days prior. New onset seizure and and it seems provoked due to alcohol withdrawal. Also her urine drug screen is positive for amphetamine and methamphetamine but she denies drug use and possibly this can trigger it Transaminitis (AST>ALT) likely due to alcohol use Alcohol use Plan: I ordered CT of the head then will pursue with MRI Brain. Ordered routine EEG which will be completed this Friday I will not start her on antiseizure medication since I feel this is provoked. If the EEG shows suggestive of discharges or imaging she has lesion then will consider it. Seizure precaution and pads. Per [place] DMV because of seizure, avoid driving for 6 months from last seizure events, avoid heights, avoid swimming assisted or using heavy machinery Patient was counseled on alcohol cessation Patient is on thiamine I ordered TSH, vitamin B12 folate level. Patient is on CIWA protocol Will defer the rest of medical management to primary team. Thank you for the consultation. Time with Patient: Greater than 30
--- NOTE | 2024-07-10 14:48 | CT ---
EXAMINATION TYPE: CT brain wo con DATE OF EXAM: 07/10/2024 2:39 PM COMPARISON: Previous CT brain study dated 01/09/2021. CLINICAL INDICATION: Female, 39 years old with history of seizure, Seizure. TECHNIQUE: Brain: Axial CT images of the brain were obtained with coronal and sagittal reformats created and rev iewed. Contrast used: None. Oral contrast used: None. CT DLP: 1047.4 mGycm, Automated exposure control for dose reduction was used. FINDINGS: Brain: Extra-axial spaces: No abnormal extra-axial fluid collections. Ventricular system: Within normal limits Cerebral parenchyma: No acute intraparenchymal hemorrhage or mass effect. The servin-white junction is well differentiated. Cerebellum: Unremarkable. Mass effect: No evidence of midline shift. Intracranial vasculature: unremarkable Soft tissues: Normal. Calvarium/osseous structures: No depressed skull fracture. Paranasal sinuses and mastoid air cells: Clear Visualized orbits: Orbital contents are intact. IMPRESSION: No acute intracranial process. [facility], Workstation: [email or web address], 07/10/2024 2:46 PM
--- NOTE | 2024-07-11 12:04 | P.PN ---
Subjective Progress Note Date: 07/11/24 chance is a 39-year-old female was brought to the hospital by EMS due to seizures. Patient started having tremors and felt like having a seizure while she was standing in the bathroom. She held seizure and went to floor onto her left side and started having convulsions. Denied any loss of consciousness or hitting her head. Patient states that she has been attempting to stop drinking. Normally drinks about 1 pint daily. Last drink was yesterday. Prior history of alcohol withdrawals but denied any history of prior seizures. Patient was recently started on BuSpar and Wellbutrin by her [facility] physician about a month ago. Denied any fever or chills. No headache. No cough or sputum production. No chest pain or shortness of breath. No nausea or vomiting. No leg swelling. No recent illnesses. Patient does smoke on daily basis. Laboratory showed WBC 4.0 hemoglobin 13.1 and MCV 106.8 and platelets 73 sodium 131 potassium 3.3 BUN 10 and creatinine 0.67 and calcium 7.4 magnesium 1.7 bilirubin level total 1.5 AST 194 ALT 18 alk phos 177 and total protein 5.8 and albumin 2.8. Urinalysis showed large blood leukocyte esterase small and RBCs 115 WBC 6 07/10. Patient seen and examined. No further episodes of seizures. Denies any weakness of any extremity. 07/11. Patient seen and examined. Neurology eval the patient, recommend doing MRI brain and EEG. Complaining of visual hallucinations. REVIEW OF SYSTEMS: CONSTITUTIONAL: No fever, no malaise,. CARDIOVASCULAR: No chest pain, no palpitations, no syncope. PULMONARY: No shortness of breath, no cough, GASTROINTESTINAL: No diarrhea, no nausea, no vomiting, no abdominal pain. NEUROLOGICAL: No headaches, no weakness, PHYSICAL EXAMINATION: GENERAL: The patient is alert and oriented x3, not in any acute distress. Well developed, well nourished. HEENT: Pupils are round and equally reacting to light. EOMI. No scleral icterus. No conjunctival pallor. Normocephalic, atraumatic. No pharyngeal erythema. No thyromegaly. CARDIOVASCULAR: S1 and S2 present. No murmurs, rubs, or gallops. PULMONARY: Chest is clear to auscultation, no wheezing or crackles. ABDOMEN: Soft, nontender, nondistended, normoactive bowel sounds. No palpable organomegaly. MUSCULOSKELETAL: No joint swelling or deformity. EXTREMITIES: No cyanosis, clubbing, or pedal edema. NEUROLOGICAL: Gross neurological examination did not reveal any focal deficits. SKIN: No rashes. Assessment and plan Acute seizure episode likely alcohol withdrawal seizure Hypovolemic hyponatremia Hypokalemia Macrocytosis and thrombocytopenia due to alcohol abuse Elevated liver enzymes and bilirubin level UDS positive for methamphetamines and amphetamines Alcohol use disorder Marijuana use disorder Currently everyday smoker Monitor vital signs Monitor CBC Monitor CMP Continue telemetry monitoring Seizure precaution Aspiration precaution Continue CIWA protocol Continue high-dose thiamine and folic acid EEG ordered MRI brain ordered Neurology following Labs and medication were reviewed.. Continue same treatment. Continue with symptomatic treatment. Resume home medication. Monitor labs and vitals. DVT and GI prophylaxis. Further recommendations as per clinical course of the patient Dictation was produced using [employer] dictation software. please excuse any grammatical, word or spelling errors. Objective - Vital Signs Vital signs: Vital Signs Temp 97.7 F 07/11/24 01:23 Pulse 78 07/11/24 01:23 Resp 20 07/11/24 01:23 BP 120/74 07/11/24 01:23 Pulse Ox 100 07/11/24 01:23 FiO2 Intake & Output 07/10/24 07/11/24 07/11/24 18:59 06:59 18:59 Intake Total 480 Balance 480 Weight 45.359 kg Intake: Oral 480 Other: Voiding Method Toilet Toilet # Voids 2 2 - Labs CBC & Chem 7: 07/10/24 03:30 07/10/24 03:30 Labs: Abnormal Lab Results - Last 24 Hours (Table) 07/10/24 07/10/24 Range/Units 03:30 03:30 WBC 3.31 L (4.50-10.00) X 10*3/uL RBC 3.30 L (4.10-5.20) X 10*6/uL Hgb 11.9 L (12.0-15.0) g/dL Hct 34.3 L (37.2-46.3) % MCV 103.9 H (80.0-97.0) FL MCH 36.1 H (27.0-32.0) pg Plt Count 76 L (140-440) X 10*3/uL Macrocytosis (manual) 2+ A Target Cells 2+ A BUN 6.9 L (9.0-27.0) mg/dL BUN/Creatinine Ratio 11.50 L (12.00-20.00) Ratio Calcium 7.9 L (8.7-10.3) mg/dL Total Bilirubin 1.3 H (0.3-1.2) mg/dL AST 123 H (13-35) U/L ALT 64 H (8-44) U/L Alkaline Phosphatase 143 H (41-126) U/L Total Protein 5.7 L (6.2-8.2) g/dL Albumin 3.2 L (3.8-4.9) g/dL Albumin/Globulin Ratio 1.28 L (1.60-3.17) Ratio
[2024-07-12] MEDS: buPROPion XL 150 MG TAB.ER.24H PO SCH (14:38)
[2024-07-12] MEDS: busPIRone HCl 10 MG TAB PO SCH (15:17)
--- NOTE | 2024-07-12 15:38 | US ---
EXAMINATION TYPE: US venous doppler duplex UE LT DATE OF EXAM: 07/12/2024 COMPARISON: NONE CLINICAL INDICATION: Female, 39 years old with history of Red and swelling in the ac IV site, eval fo r dvt; Pt had IV in left antecubital fossa, pain and redness in area TECHNIQUE: Grayscale, color Doppler and spectral Doppler imaging of the upper extremity. SIDE PERFORMED: Left FINDINGS: Left Arm: No evidence for DVT. Echoes seen in cephalic vein from mid upper arm to elbow. No compressi on or blood flow seen here Grayscale, color doppler, spectral doppler imaging performed of the deep veins of the upper extremiti es. IMPRESSION: 1. No evidence for deep vein thrombosis. 2. Superficial thrombophlebitis within the cephalic vein mid upper arm to elbow. [facility], , 07/12/2024 3:36 PM
[2024-07-12] MEDS: HYDROcodone/APAP 5-325MG 1 EACH TAB PO PRN (21:33)
--- NOTE | 2024-07-12 23:09 | PN ---
PROGRESS NOTE DATE OF SERVICE: 07/12/2024 SUBJECTIVE: This is a 39-year-old woman, who was admitted with a seizure disorder, also had an MRI pending at this time. No chest pain. No palpitation. OBJECTIVE: VITAL SIGNS: Pulse is 86, blood pressure 103/60, respirations 18. CHEST: Clear to auscultation. CARDIOVASCULAR: S1, S2. ABDOMEN: Soft. NERVOUS SYSTEM: Nonfocal. LABORATORY DATA: Reviewed. ASSESSMENT: 1. Acute seizure disorder. 2. Alcohol withdrawal syndrome. 3. Multiple acute abnormalities. 4. History of nicotine dependence. RECOMMENDATIONS: Recommend to continue current management and continue symptomatic treatment. Repeat labs, MRI. Guarded prognosis. Further recommendations to follow. MMODL / IJN: [id number] /
--- NOTE | 2024-07-13 00:15 | EEG ---
DATE OF SERVICE: 07/12/2024 ELECTROENCEPHALOGRAM REPORT PREAMBLE: This is a 39-year-old female, came to the ED for seizure-like activity. The patient drinks on a daily basis. Drinks half a pint of vodka for the past 7 years. CURRENT MEDICATIONS: 1. Ativan. 2. Motrin. EEG FINDINGS: This is a 21-channel digital EEG recorded with video component, utilizing 10/20 international system with referential montages. The background consists of moderately well-developed and regulated, predominantly low amplitude mixed frequencies of 10 hertz alpha, intermixed with some low-voltage fast frequency beta activity seen in bihemispheric region. Background seems to be reactive to eye opening and closing. Photic driving response was seen with some flash frequencies. Drowsiness was seen, but deeper stages of sleep were not attained. No focal or generalized epileptiform activity was seen. IMPRESSION: This is a normal awake and drowsy EEG. No focal, lateralized, or epileptiform activity was seen. The presence of slightly excessive low-voltage fast frequency beta activity suggests medication effect. MMODL / IJN: [id number] / [email or web address]
[2024-07-13 08:24] LABS: HCT 35.5 % (37.2-46.3); HGB 11.6 g/dL (12.0-15.0); MCH 36.3 pg (27.0-32.0); MCHC 32.7 g/dL (32.0-37.0); MCV 110.9 FL (80.0-97.0); Mean Platelet Volume 10.6 FL (9.5-12.2); NRBC Per 100 WBC 0 X 10*3/uL (0.00-0.01); Platelet Count 113 X 10*3/uL (140-440); RDW 13.4 % (11.5-14.5)
[2024-07-13 08:28] VITALS: RESP 16
[2024-07-13 09:30] LABS: ALT 30 U/L (8-44); AST 36 U/L (13-35); Albumin 3.1 g/dL (3.8-4.9); Albumin/Globulin Ratio 1.24 Ratio (1.60-3.17); Alkaline Phosphatase 110 U/L (41-126); BUN/Creat Ratio 16.83 Ratio (12.00-20.00); Blood Urea Nitrogen 10.1 mg/dL (9.0-27.0); Calcium 8.2 mg/dL (8.7-10.3); Carbon Dioxide 22.9 mmol/L (21.6-31.8); Chloride 101 mmol/L (96-109); Globulin 2.5 g/dL (1.6-3.3); Glucose 94 mg/dL (70-110); Potassium 4.3 mmol/L (3.5-5.5); Sodium 134 mmol/L (135-145); Total Bilirubin 0.3 mg/dL (0.3-1.2); Total Protein 5.6 g/dL (6.2-8.2)
[2024-07-13 09:51] LABS: Basophils # (A) 0.04 X 10*3/uL (0.00-0.10); Basophils % (A) 1.1 %; Eosinophils # (A) 0.03 X 10*3/uL (0.04-0.35); Eosinophils % (A) 0.8 %; Lymphocytes # (A) 0.61 X 10*3/uL (0.90-5.00); Lymphocytes % (A) 16.9 %; Macrocytosis (M) 2+; Monocytes % (A) 13.9 %; Neutrophils # (A) 2.34 X 10*3/uL (1.80-7.70); Neutrophils % (A) 65.1 %
--- NOTE | 2024-07-13 10:43 | P.PN ---
Subjective Progress Note Date: 07/12/24 Patient was initially seen by Dr. Alex White. Please refer to his note for details. Patient is 39-year-old female with alcohol use and new onset seizure. Dr. White felt more like alcohol withdrawal. Patient is laying in the bed, in no distress. No further seizures reported while in the hospital. Patient is complaining of cellulitis over the IV infiltrated site in the left elbow. Some of the workup during this hospital visit consisted of: AST is 194 ALT is 80, sodium is 131, glucose is 89, calcium 7.4, magnesium is 1.7. Urine drug screen is positive for amphetamine and methamphetamine. Serum alcohol is less than 10. Urine hCG is not detected. Objective - Vital Signs Vital signs: Vital Signs Temp 99.2 F 07/12/24 19:23 Pulse 93 07/12/24 19:23 Resp 15 07/12/24 19:23 BP 101/63 07/12/24 19:23 Pulse Ox 100 07/12/24 19:23 FiO2 Intake & Output 07/12/24 07/12/24 07/13/24 06:59 18:59 06:59 Intake Total 200 Balance 200 Weight 45.359 kg Intake: Oral 200 Other: Voiding Method Toilet # Voids 2 3 - Exam Mental status, speech and language functions are normal. Strength normal. Patient has cellulitis over the left elbow. - Labs CBC & Chem 7: 07/13/24 02:43 07/13/24 02:43 Assessment and Plan Assessment: This is a 39-year-old woman with history of heavy alcohol use who presents because of seizure-like activity. She stated that her first time having seizure-like activity and she drinks almost on a daily basis and she has not drank 2 to 3 days prior to her seizure-like activity and was placed on Buspirone days prior. New onset seizure and and it seems provoked due to alcohol withdrawal. Also her urine drug screen is positive for amphetamine and methamphetamine but she denies drug use and possibly this can trigger it. Seizure can also be provoked by Wellbutrin. Transaminitis (AST>ALT) likely due to alcohol use Alcohol use Plan: MRI Brain, initiated by Dr. White. Can be done as an outpatient. EEG was normal awake and drowsy. No focal, lateralized or epileptiform activity was seen. Presence of slightly excessive low voltage fast frequency beta activi ty suggest medication effect. No indication for AED, as the seizure is likely provoked due to alcohol withdrawal versus related to Wellbutrin or related to amphetamine use. Stop Wellbutrin Seizure precaution and pads. Per [place] DMV because of seizure, avoid driving for 6 months from last seizure events, avoid heights, avoid swimming assisted or using heavy machinery Patient was counseled on alcohol cessation Patient is on thiamine B12 447, folate 14.3 and TSH 0.924, all normal Patient is on CIWA protocol Patient has cellulitis, on cefazolin 2 g every 8 hours. Will defer the rest of medical management to primary team. Neurologically clear.
[2024-07-13 14:22] VITALS: BP 112/66; PULSE 62; TEMP 98.5
--- NOTE | 2024-07-13 17:23 | MR ---
EXAMINATION TYPE: MR brain wo/w con DATE OF EXAM: 07/13/2024 5:00 PM COMPARISON: 07/10/2024. CLINICAL INDICATION: Female, 39 years old with history of seizure; PHH, seizure. TECHNIQUE: Multi planar, multi sequence imaging was performed through the brain including: T1, T2, In version recovery, susceptibility weighted imaging and gradient echo imaging and Diffusion weighted im aging. The patient was then given intravenous contrast and multi planar, T1 fat-saturation images wer e obtained. IV Contrast: 4.5 mL Gadavist FINDINGS: The servin-white junctions, ventricular system, basal cisterns appear unremarkable. Diffusion-weighted imaging shows no evidence of restricted diffusion to suggest acute/subacute infarct. Intracranial ar terial flow voids are maintained. Midline structures show no abnormality. The susceptibility weighted images do not reveal any evidence for micro-hemorrhage. After administration of gadolinium, no abnor mal enhancement is seen. The bone marrow signal is within normal limits. Paranasal sinuses and mastoid air cells: No significant paranasal sinus disease. Visualized orbits: Orbital contents are intact. IMPRESSION: No evidence of intracranial mass, acute/subacute infarct, or abnormal enhancement. [facility], , 07/13/2024 5:20 PM
--- NOTE | 2024-07-17 11:54 | P.DS ---
Providers Date of admission: 07/09/24 13:56 Expected date of discharge: 07/13/24 Attending physician: Eduin Pacheco Consults: 07/09/24 13:05 Consult Physician Routine Consulting Provider: Alex White Consult Reason/Comments: Seizure Do you want consulting provider notified?: Yes Primary care physician: Mikala Roth Hospital Course: Final diagnosis Acute seizure episode likely alcohol withdrawal seizure, MRI brain is negative Hypovolemic hyponatremia, improved after IV fluids Hypokalemia, replace Macrocytosis and thrombocytopenia due to alcohol abuse Elevated liver enzymes and bilirubin level UDS positive for methamphetamines and amphetamines Alcohol use disorder Marijuana use disorder Currently everyday smoker Discharge disposition Patient is being discharged in a stable condition with guarded prognosis to home. Patient will follow-up with Dr. Salomon Clark in the outpatient setting upon discharge. Patient is to continue with current outpatient follow-up with neurology as scheduled. Strongly encourage inpatient polysubstance abuse rehab. Total time taken is greater than 35 minutes. Hospital course This is a 39-year-old female who was recently admitted with acute seizure-like episode likely secondary to alcohol withdrawal seizures being closely monitored on CINY protocol along with neurology following. Patient underwent extensive workup including MRI of the brain which was negative for any acute process. No further seizure-like activity noted and patient has been cleared by neurology for outpatient follow-up. Strongly recommend inpatient alcohol and substance abuse rehab. Patient provided resources. Patient instructed to follow-up with primary care provider on discharge. No further withdrawal symptoms noted as well. Currently no reports of chest pain, shortness of breath, or palpitations. Patient is afebrile. No reports of nausea or vomiting and patient is tolerating diet. Patient will be discharged home today. Guarded prognosis and high risk for readmissions given patient's alcohol and drug abuse. Physical exam: Gen: This is a 39-year-old female who is awake, alert and oriented x 3, well- developed, well-nourished, thin built HEENT: Head is atraumatic, normocephalic. Pupils equal, round. Sclerae is anicteric. NECK: Supple. No JVD. No lymphadenopathy. No thyromegaly. LUNGS: Clear to auscultation. No wheezes or rhonchi. No intercostal retractions. HEART: Regular rate and rhythm. No murmur. ABDOMEN: Soft. Bowel sounds are present. No masses. No tenderness. EXTREMITIES: No pedal edema. No calf tenderness. NEUROLOGICAL: Patient is awake, alert and oriented x3. No further reports of visual disturbance noted. Cranial nerves 2 through 12 are grossly intact. Please refer to medication reconciliation sheet for a list of medications. The impression and plan of care has been dictated by Lorraine Tatum, Nurse Practitioner as directed. Dr. Eduardo MD I have performed a history and examination and MDM of this patient, discussed the same with the dictator, and agree with the dictator's assessment and plan as written ,documented as a scribe. Based on total visit time, I have performed more than 50% of the visit. Patient Condition at Discharge: Stable Plan - Discharge Summary New Discharge Prescriptions: New Ibuprofen [Motrin] 600 mg PO QID PRN #30 tab PRN Reason: Toothache Thiamine [Vitamin B-1] 100 mg PO DAILY #30 tab Cephalexin [Keflex] 500 mg PO Q8HR 3 Days #15 cap Continue busPIRone HCl [Buspar] 10 mg PO TID Discontinued buPROPion HCL [buPROPion HCL XL] 150 mg PO DAILY Discharge Medication List busPIRone HCl [Buspar] 10 mg PO TID 07/09/24 [History] Cephalexin [Keflex] 500 mg PO Q8HR 3 Days #15 cap 07/13/24 [Rx] Ibuprofen [Motrin] 600 mg PO QID PRN #30 tab 07/13/24 [Rx] Thiamine [Vitamin B-1] 100 mg PO DAILY #30 tab 07/13/24 [Rx] Follow up Appointment(s)/Referral(s): Tucker Lynn MD [REFERRING] - 1 Week (office did not answer please call to schedule appointment ) Mikala Roth MD [Primary Care Provider] - 1 Week (Please call office to schedule appointment) Activity/Diet/Wound Care/Special Instructions: Okay for discharge once cleared by neurology if MRI is negative Activity limited until follow-up Follow-up with primary care provider Mee Deisr at [facility] in [place] Follow-up with neurology outpatient Avoid all alcohol use and intake Continue taking medications as prescribed Continue with antibiotics for 5 days and continue using warm compresses to the left elbow crease area, may use bacitracin to the area otherwise keep clean and dry and avoid touching and itching Discharge/Stand Alone Forms: AA Meetings [facility] [address] [facility] - [facility], AA Meetings [facility], Outpatient Counseling, In Substance Abuse Facilities Discharge Disposition: HOME SELF-CARE
== END 2024-07-13 18:55 | disposition home or self-care (01) | DRG 775 ==
LOC: EC 10:06 → OBSVTOIN 13:56 → 4SSUR 13:56
PROVIDERS: ADMIT Internal Medicine; ATTEND Internal Medicine
DX: F10.239 Alcohol dependence with withdrawal, unspecified (principal); R56.9 Unspecified convulsions; E86.1 Hypovolemia; E87.1 Hypo-osmolality and hyponatremia; E87.6 Hypokalemia; T80.29XA Infection following other infusion, transfusion and therapeutic injection, initial encounter; L03.114 Cellulitis of left upper limb; Y71.2 Prosthetic and other implants, materials and accessory cardiovascular devices associated with adverse incidents; D69.59 Other secondary thrombocytopenia; D75.89 Other specified diseases of blood and blood-forming organs; F12.10 Cannabis abuse, uncomplicated; F17.200 Nicotine dependence, unspecified, uncomplicated; Z79.899 Other long term (current) drug therapy
CPT/HCPCS: 36415; 70450; 70553; 80053; 80306; 80320; 81001; 81025; 82607; 82746; 83735; 84443; 85025; 93005; 95816; 96361; 96365; 96372; 96375; 96376; 99285

== ENCOUNTER 2025-01-28 16:06 | Emergency (ER) | payer OTHER ==
[2025-01-28] MEDS: SODIUM CHLORIDE 0.9% 500 ML 500 ML IV STA (16:52)
[2025-01-28] MEDS: LORazepam 1 MG/0.5 ML VIAL IV STA (16:54)
[2025-01-28 16:55] LABS: Basophils # (A) 0.05 10*3/uL (0.00-0.10); Basophils % (A) 1.6 %; Eosinophils # (A) 0.01 10*3/uL (0.04-0.35); Eosinophils % (A) 0.3 %; HCT 40.6 % (37.2-46.3); HGB 14.5 g/dL (12.0-15.0); Immature Platelet Fraction 2.3 % (1.1-6.1); Lymphocytes # (A) 0.99 10*3/uL (0.90-5.00); Lymphocytes % (A) 31.8 %; MCH 36.4 pg (27.0-32.0); MCHC 35.7 g/dL (32.0-37.0); Mean Platelet Volume 9.3 fL (9.5-12.2); Monocytes # (A) 0.13 10*3/uL (0.20-1.00); Monocytes % (A) 4.2 %; Neutrophils # (A) 1.93 10*3/uL (1.80-7.70); Neutrophils % (A) 62.1 %; Platelet Count 128 10*3/uL (140-440); RBC 3.98 10*6/uL (4.10-5.20); WBC 3.11 10*3/uL (4.50-10.00)
[2025-01-28 17:30] LABS: ALT 19 U/L (4-34); African American GFR (CKD) >90 (>60 ml/min/1.73 sqM); Albumin 4.3 g/dL (3.5-5.0); Anion Gap 9 mmol/L; Blood Urea Nitrogen 13 mg/dL (7-17); Calcium 9.1 mg/dL (8.4-10.2); Carbon Dioxide 26 mmol/L (22-30); Chloride 101 mmol/L (98-107); Glucose 84 mg/dL (74-99); Non-African American GFR(CKD) >90 (>60 ml/min/1.73 sqM); Sodium 136 mmol/L (137-145); Total Protein 7.5 g/dL (6.3-8.2)
[2025-01-28 17:33] LABS: AST 59 U/L (14-36); Alcohol 211 mg/dL; Alkaline Phosphatase 104 U/L (38-126); Magnesium 1.6 mg/dL (1.6-2.3); Potassium 4.2 mmol/L (3.5-5.1)
--- NOTE | 2025-01-28 18:02 | ED ---
General Adult HPI - General Chief complaint: Seizure Stated complaint: ETOH withdrawal Time Seen by Provider: 01/28/25 16:11 Source: patient Mode of arrival: ambulatory Limitations: no limitations - History of Present Illness Initial comments: Please note that this is a continuation of the chart from the same day, which contains the MDM portion of the chart. - Related Data Home Medications Medication Instructions Recorded Confirmed busPIRone HCl [Buspar] 10 mg PO TID 07/09/24 07/09/24 Previous Rx's Medication Instructions Recorded Cephalexin [Keflex] 500 mg PO Q8HR 3 Days #15 cap 07/13/24 Ibuprofen [Motrin] 600 mg PO QID PRN #30 tab 07/13/24 Thiamine [Vitamin B-1] 100 mg PO DAILY #30 tab 07/13/24 LORazepam [Ativan] 1 mg PO TID 3 Days #9 tab 01/28/25 chlordiazePOXIDE HCl [Librium] 50 mg PO TID 3 Days #18 capsule 01/28/25 Allergies Allergy/AdvReac Type Severity Reaction Status Date / Time No Known Allergies Allergy Verified 01/28/25 16:13 Review of Systems ROS Statement: Those systems with pertinent positive or pertinent negative responses have been documented in the HPI. ROS Other: All systems not noted in ROS Statement are negative. Past Medical History Past Medical History: No Reported History Additional Past Medical History / Comment(s): heart murmur, ETOH abuse History of Any Multi-Drug Resistant Organisms: None Reported Past Surgical History: No Surgical Hx Reported Additional Past Surgical History / Comment(s): facial Past Anesthesia/Blood Transfusion Reactions: No Reported Reaction Past Psychological History: No Psychological Hx Reported, Anxiety, Depression Smoking Status: Current every day smoker Past Alcohol Use History: Abuse, Daily Past Drug Use History: None Reported - Past Family History Mother Family Medical History: Thyroid Disorder General Exam Limitations: no limitations Course Vital Signs 01/28/25 01/28/25 01/28/25 16:08 18:22 20:55 Temperature 98.6 F 98.3 F Pulse Rate 98 90 88 Respiratory 20 16 18 Rate Blood Pressure 149/97 115/77 131/95 O2 Sat by Pulse 99 99 97 Oximetry Medical Decision Making - Medical Decision Making Was pt. sent in by a medical professional or institution (, PA, SUPERINTENDENT MARINE, urgent care, hospital, or senior care...) When possible be specific @ -[No] Did you speak to anyone other than the patient for history (EMS, parent, family, police, friend...)? What history was obtained from this source @ -[No] Did you review nursing and triage notes (agree or disagree)? Why? @ -[I reviewed and agree with nursing and triage notes] Were old charts reviewed (outside hosp., previous admission, EMS record, old EK G, old radiological studies, urgent care reports/EKG's, senior care records)? Report findings @ -[No old charts were reviewed] Differential Diagnosis (chest pain, altered mental status, abdominal pain women, abdominal pain men, vaginal bleeding, weakness, fever, dyspnea, syncope, headache, dizziness, GI bleed, back pain, seizure, CVA, palpatations, mental health, musculoskeletal)? @ -[Differential Mental Health Depression, anxiety, bipolar, psychosis, schizophrenia, borderline personality, situational depression, adjustment disorder, behavioral disorder, brain tumor, malingering, substance abuse, encephalopathy, medication reaction, dementia, hypothyroidism, degenerative neurologic disorder, lupus.... This is not meant to be all-inclusive list EKG interpreted by me (3pts min.). @ -[As above] X-rays interpreted by me (1pt min.). @ -[None done] CT interpreted by me (1pt min.). @ -[None done] U/S interpreted by me (1pt. min.). @ -[None done] What testing was considered but not performed or refused? (CT, X-rays, U/S, labs)? Why? @ -[None] What meds were considered but not given or refused? Why? @ -[None] Did you discuss the management of the patient with other professionals (professionals i.e. , PA, SUPERINTENDENT MARINE, lab, RT, psych nurse, social sciences department chair, tower control operator, teacher, correctional officer sergeant, geriatric case manager)? Give summary @ -[No] Was smoking cessation discussed for >3mins.? @ -[No] Was critical care preformed (if so, how long)? @ -[No] Were there social determinants of health that impacted care today? How? (Homelessness, low income, unemployed, alcoholism, drug addiction, transportat ion, low edu. Level, literacy, decrease access to med. care, prison, rehab)? @ -[No] Was there de-escalation of care discussed even if they declined (Discuss DNR or withdrawal of care, Hospice)? DNR status @ -[No] What co-morbidities impacted this encounter? (DM, HTN, Smoking, COPD, CAD, Cancer, CVA, ARF, Chemo, Hep., AIDS, mental health diagnosis, sleep apnea, morbid obesity)? @ -[None] Was patient admitted / discharged? Hospital course, mention meds given and route, prescriptions, significant lab abnormalities, going to OR and other pertinent info. @ -[Patient is a 39-year-old woman here from [place] with concern that she felt like she was going to have seizure. The patient's workup here does reveal that patient does have moderately elevated alcohol level. The patient did have good response to benzodiazepines and at this point stable to continue supervised withdrawal with benzodiazepine treatment. Discussed appropriate further care and follow-up as well as return parameters. Undiagnosed new problem with uncertain prognosis? @ -[No] Drug Therapy requiring intensive monitoring for toxicity (Heparin, Nitro, Insulin, Cardizem)? @ -[No] Were any procedures done? @ -[No] Diagnosis/symptom? @ -[Alcohol withdrawal Acute, or Chronic, or Acute on Chronic? @ -[Acute Uncomplicated (without systemic symptoms) or Complicated (systemic symptoms)? @ -[Uncomplicated Side effects of treatment? @ -[No] Exacerbation, Progression, or Severe Exacerbation? @ -[No] Poses a threat to life or bodily function? How? (Chest pain, [place], [place], pneumonia, PE, COPD, DKA, ARF, appy, cholecystitis, CVA, Diverticulitis, Homicidal, Suicidal, threat to staff... and all critical care pts) @ -[No] All treatments are based on ideal body weight as in ED triage - Lab Data Result diagrams: 01/28/25 16:43 01/28/25 16:43 Lab Results 01/28/25 01/28/25 01/28/25 Range/Units 16:43 16:43 16:43 WBC 3.11 L (4.50-10.00) 10*3/uL RBC 3.98 L (4.10-5.20) 10*6/uL Hgb 14.5 (12.0-15.0) g/dL Hct 40.6 (37.2-46.3) % MCV 102.0 H (80.0-97.0) fL MCH 36.4 H (27.0-32.0) pg MCHC 35.7 (32.0-37.0) g/dL Plt Count 128 L (140-440) 10*3/uL MPV 9.3 L (9.5-12.2) fL Immature Gran % (Auto) 0 % Neutrophils % 62.1 % Lymphocytes % 31.8 % Monocytes % 4.2 % Eosinophils % 0.3 % Basophils % 1.6 % Immature Gran # 0.00 (0.00-0.04) 10*3/uL Neutrophils # 1.93 (1.80-7.70) 10*3/uL Lymphocytes # 0.99 (0.90-5.00) 10*3/uL Monocytes # 0.13 L (0.20-1.00) 10*3/uL Eosinophils # 0.01 L (0.04-0.35) 10*3/uL Basophils # 0.05 (0.00-0.10) 10*3/uL Immature Plt Fraction 2.3 (1.1-6.1) % Sodium 136 L (137-145) mmol/L Potassium 4.2 (3.5-5.1) mmol/L Chloride 101 (98-107) mmol/L Carbon Dioxide 26 (22-30) mmol/L Anion Gap 9 mmol/L BUN 13 (7-17) mg/dL Creatinine 0.58 (0.52-1.04) mg/dL Est GFR (CKD-EPI)AfAm >90 (>60 ml/min/1.73 sqM) Est GFR (CKD-EPI)NonAf >90 (>60 ml/min/1.73 sqM) Glucose 84 (74-99) mg/dL Lactic Ac Sepsis Rflx Plasma Lactic Acid Alex 2.4 H* (0.7-2.0) mmol/L Calcium 9.1 (8.4-10.2) mg/dL Magnesium 1.6 (1.6-2.3) mg/dL Total Bilirubin 1.0 (0.2-1.3) mg/dL AST 59 H (14-36) U/L ALT 19 (4-34) U/L Alkaline Phosphatase 104 (38-126) U/L Total Protein 7.5 (6.3-8.2) g/dL Albumin 4.3 (3.5-5.0) g/dL Serum Alcohol 211 H* mg/dL 01/28/25 Range/Units 17:14 WBC (4.50-10.00) 10*3/uL RBC (4.10-5.20) 10*6/uL Hgb (12.0-15.0) g/dL Hct (37.2-46.3) % MCV (80.0-97.0) fL MCH (27.0-32.0) pg MCHC (32.0-37.0) g/dL Plt Count (140-440) 10*3/uL MPV (9.5-12.2) fL Immature Gran % (Auto) % Neutrophils % % Lymphocytes % % Monocytes % % Eosinophils % % Basophils % % Immature Gran # (0.00-0.04) 10*3/uL Neutrophils # (1.80-7.70) 10*3/uL Lymphocytes # (0.90-5.00) 10*3/uL Monocytes # (0.20-1.00) 10*3/uL Eosinophils # (0.04-0.35) 10*3/uL Basophils # (0.00-0.10) 10*3/uL Immature Plt Fraction (1.1-6.1) % Sodium (137-145) mmol/L Potassium (3.5-5.1) mmol/L Chloride (98-107) mmol/L Carbon Dioxide (22-30) mmol/L Anion Gap mmol/L BUN (7-17) mg/dL Creatinine (0.52-1.04) mg/dL Est GFR (CKD-EPI)AfAm (>60 ml/min/1.73 sqM) Est GFR (CKD-EPI)NonAf (>60 ml/min/1.73 sqM) Glucose (74-99) mg/dL Lactic Ac Sepsis Rflx Y Plasma Lactic Acid Alex (0.7-2.0) mmol/L Calcium (8.4-10.2) mg/dL Magnesium (1.6-2.3) mg/dL Total Bilirubin (0.2-1.3) mg/dL AST (14-36) U/L ALT (4-34) U/L Alkaline Phosphatase (38-126) U/L Total Protein (6.3-8.2) g/dL Albumin (3.5-5.0) g/dL Serum Alcohol mg/dL Disposition Clinical Impression: Alcohol withdrawal Disposition: HOME SELF-CARE Condition: Good Instructions (If sedation given, give patient instructions): Alcohol Withdrawal (DC) Prescriptions: LORazepam [Ativan] 1 mg PO TID 3 Days #9 tab chlordiazePOXIDE HCl [Librium] 50 mg PO TID 3 Days #18 capsule Is patient prescribed a controlled substance at d/c from ED?: Yes When asked, does pt state using other controlled substances?: No If prescribed controlled substance>3 days was MAPS reviewed?: Prescribed <3 Days If opioid is for acute pain is fill amount 7 days or less?: Yes If Rx opioid, was Start Talking consent form obtained?: Yes Referrals: Mikala Roth MD [Primary Care Provider] - 1-2 days
--- NOTE | 2025-01-28 18:02 | ED ---
General Adult HPI - General Chief complaint: Seizure Stated complaint: ETOH withdrawal Time Seen by Provider: 01/28/25 16:11 Source: patient Mode of arrival: ambulatory Limitations: no limitations - History of Present Illness Initial comments: This patient is a 39-year-old woman who arrives here as transfer from [place]. The patient states she was checking in there and she felt like she was getting a spasm in her arm. She was sent over here to ensure that no seizure was developing. The patient is at [facility] to have rehabilitation from [employer]. She states she has cut down recently but she is still drinking a pint per day. Her last alcohol was at 11 AM. She had 1/2 pint to drink. She denies other medical problems. No hallucinations currently. -: hour(s) Severity scale (1-10): 0 Improves with: none Worsens with: none Associated Symptoms: denies other symptoms Treatments Prior to Arrival: none - Related Data Home Medications Medication Instructions Recorded Confirmed busPIRone HCl [Buspar] 10 mg PO TID 07/09/24 07/09/24 Previous Rx's Medication Instructions Recorded Cephalexin [Keflex] 500 mg PO Q8HR 3 Days #15 cap 07/13/24 Ibuprofen [Motrin] 600 mg PO QID PRN #30 tab 07/13/24 Thiamine [Vitamin B-1] 100 mg PO DAILY #30 tab 07/13/24 LORazepam [Ativan] 1 mg PO TID 3 Days #9 tab 01/28/25 chlordiazePOXIDE HCl [Librium] 50 mg PO TID 3 Days #18 capsule 01/28/25 Allergies Allergy/AdvReac Type Severity Reaction Status Date / Time No Known Allergies Allergy Verified 01/28/25 16:13 Review of Systems ROS Statement: Those systems with pertinent positive or pertinent negative responses have been documented in the HPI. ROS Other: All systems not noted in ROS Statement are negative. Constitutional: Denies: fever, chills Eyes: Denies: vision change Respiratory: Denies: cough, dyspnea Cardiovascular: Denies: chest pain, palpitations Gastrointestinal: Denies: abdominal pain, nausea, vomiting, diarrhea Genitourinary: Denies: dysuria, hematuria Musculoskeletal: Reports: as per HPI, myalgia. Denies: back pain Skin: Denies: rash Neurological: Denies: headache, weakness, numbness Past Medical History Past Medical History: No Reported History Additional Past Medical History / Comment(s): heart murmur, ETOH abuse History of Any Multi-Drug Resistant Organisms: None Reported Past Surgical History: No Surgical Hx Reported Additional Past Surgical History / Comment(s): facial Past Anesthesia/Blood Transfusion Reactions: No Reported Reaction Past Psychological History: No Psychological Hx Reported, Anxiety, Depression Smoking Status: Current every day smoker Past Alcohol Use History: Abuse, Daily Past Drug Use History: None Reported - Past Family History Mother Family Medical History: Thyroid Disorder General Exam Limitations: no limitations General appearance: alert, in no apparent distress Head exam: Present: atraumatic, normocephalic Eye exam: Present: normal appearance. Absent: scleral icterus, conjunctival injection Neck exam: Present: normal inspection Respiratory exam: Present: normal lung sounds bilaterally. Absent: respiratory distress, wheezes, rales, rhonchi, stridor, accessory muscle use Cardiovascular Exam: Present: regular rate, normal rhythm, normal heart sounds. Absent: systolic murmur, diastolic murmur, rubs, gallop GI/Abdominal exam: Present: soft. Absent: distended, tenderness, guarding, rebound, rigid, mass Extremities exam: Present: normal inspection, normal capillary refill. Absent: pedal edema, calf tenderness Back exam: Present: normal inspection. Absent: CVA tenderness (R), CVA tenderness (L) Neurological exam: Present: alert, oriented X3. Absent: motor sensory deficit Skin exam: Present: warm, dry, intact, normal color. Absent: rash Course Vital Signs 01/28/25 01/28/25 01/28/25 16:08 18:22 20:55 Temperature 98.6 F 98.3 F Pulse Rate 98 90 88 Respiratory 20 16 18 Rate Blood Pressure 149/97 115/77 131/95 O2 Sat by Pulse 99 99 97 Oximetry Medical Decision Making - Medical Decision Making Please see the chart from the same day approximately 2 hours later for the MDM portion of this chart - Lab Data Result diagrams: 01/28/25 16:43 01/28/25 16:43 Lab Results 01/28/25 01/28/25 01/28/25 Range/Units 16:43 16:43 16:43 WBC 3.11 L (4.50-10.00) 10*3/uL RBC 3.98 L (4.10-5.20) 10*6/uL Hgb 14.5 (12.0-15.0) g/dL Hct 40.6 (37.2-46.3) % MCV 102.0 H (80.0-97.0) fL MCH 36.4 H (27.0-32.0) pg MCHC 35.7 (32.0-37.0) g/dL Plt Count 128 L (140-440) 10*3/uL MPV 9.3 L (9.5-12.2) fL Immature Gran % (Auto) 0 % Neutrophils % 62.1 % Lymphocytes % 31.8 % Monocytes % 4.2 % Eosinophils % 0.3 % Basophils % 1.6 % Immature Gran # 0.00 (0.00-0.04) 10*3/uL Neutrophils # 1.93 (1.80-7.70) 10*3/uL Lymphocytes # 0.99 (0.90-5.00) 10*3/uL Monocytes # 0.13 L (0.20-1.00) 10*3/uL Eosinophils # 0.01 L (0.04-0.35) 10*3/uL Basophils # 0.05 (0.00-0.10) 10*3/uL Immature Plt Fraction 2.3 (1.1-6.1) % Sodium 136 L (137-145) mmol/L Potassium 4.2 (3.5-5.1) mmol/L Chloride 101 (98-107) mmol/L Carbon Dioxide 26 (22-30) mmol/L Anion Gap 9 mmol/L BUN 13 (7-17) mg/dL Creatinine 0.58 (0.52-1.04) mg/dL Est GFR (CKD-EPI)AfAm >90 (>60 ml/min/1.73 sqM) Est GFR (CKD-EPI)NonAf >90 (>60 ml/min/1.73 sqM) Glucose 84 (74-99) mg/dL Lactic Ac Sepsis Rflx Plasma Lactic Acid Alex 2.4 H* (0.7-2.0) mmol/L Calcium 9.1 (8.4-10.2) mg/dL Magnesium 1.6 (1.6-2.3) mg/dL Total Bilirubin 1.0 (0.2-1.3) mg/dL AST 59 H (14-36) U/L ALT 19 (4-34) U/L Alkaline Phosphatase 104 (38-126) U/L Total Protein 7.5 (6.3-8.2) g/dL Albumin 4.3 (3.5-5.0) g/dL Serum Alcohol 211 H* mg/dL 01/28/ Range/Units 17:14 WBC (4.50-10.00) 10*3/uL RBC (4.10-5.20) 10*6/uL Hgb (12.0-15.0) g/dL Hct (37.2-46.3) % MCV (80.0-97.0) fL MCH (27.0-32.0) pg MCHC (32.0-37.0) g/dL Plt Count (140-440) 10*3/uL MPV (9.5-12.2) fL Immature Gran % (Auto) % Neutrophils % % Lymphocytes % % Monocytes % % Eosinophils % % Basophils % % Immature Gran # (0.00-0.04) 10*3/uL Neutrophils # (1.80-7.70) 10*3/uL Lymphocytes # (0.90-5.00) 10*3/uL Monocytes # (0.20-1.00) 10*3/uL Eosinophils # (0.04-0.35) 10*3/uL Basophils # (0.00-0.10) 10*3/uL Immature Plt Fraction (1.1-6.1) % Sodium (137-145) mmol/L Potassium (3.5-5.1) mmol/L Chloride (98-107) mmol/L Carbon Dioxide (22-30) mmol/L Anion Gap mmol/L BUN (7-17) mg/dL Creatinine (0.52-1.04) mg/dL Est GFR (CKD-EPI)AfAm (>60 ml/min/1.73 sqM) Est GFR (CKD-EPI)NonAf (>60 ml/min/1.73 sqM) Glucose (74-99) mg/dL Lactic Ac Sepsis Rflx Y Plasma Lactic Acid Alex (0.7-2.0) mmol/L Calcium (8.4-10.2) mg/dL Magnesium (1.6-2.3) mg/dL Total Bilirubin (0.2-1.3) mg/dL AST (14-36) U/L ALT (4-34) U/L Alkaline Phosphatase (38-126) U/L Total Protein (6.3-8.2) g/dL Albumin (3.5-5.0) g/dL Serum Alcohol mg/dL Disposition Clinical Impression: Alcohol withdrawal Disposition: HOME SELF-CARE Condition: Good Instructions (If sedation given, give patient instructions): Alcohol Withdrawal (DC) Prescriptions: LORazepam [Ativan] 1 mg PO TID 3 Days #9 tab chlordiazePOXIDE HCl [Librium] 50 mg PO TID 3 Days #18 capsule Is patient prescribed a controlled substance at d/c from ED?: No Referrals: Mikala Roth MD [Primary Care Provider] - 1-2 days
[2025-01-28] MEDS: SODIUM CHLORIDE 0.9% 1,000 ML IV ONE (18:23)
[2025-01-28] MEDS: chlordiazePOXIDE 25 MG CAP PO STA (19:21)
[2025-01-28] MEDS ORDERED: chlordiazePOXIDE 25 MG CAP PO STA (21:04)
[2025-01-28 21:10] VITALS: BP 131/95; PULSE 88; RESP 18; TEMP 98.3
== END 2025-01-28 21:10 | disposition home or self-care (01) ==
LOC: EC 16:06
DX: F10.239 Alcohol dependence with withdrawal, unspecified (principal); F17.200 Nicotine dependence, unspecified, uncomplicated; Y90.7 Blood alcohol level of 200-239 mg/100 ml
CPT/HCPCS: 36415; 80053; 83605; 83735; 85025; 99285; 96374; 96361 ×2; G0480; J2060; 80320